=== PATIENT | male | born 1950 | race Caucasian/White ===

== ENCOUNTER 2020-12-05 06:39 | Inpatient (IN) ==
[2020-11-30 12:19] LABS: Hematocrit 45.7 VOL% (42.0-52.0); Mean Corpuscular Volume 86.9 FL (87-102); Red Blood Count 5.26 MC/CUMM (3.8-5.5); Red Cell Distribution Width 13.6 % (9.3-17.3); White Blood Count 7.2 T/CUMM (4-12)
[2020-11-30 12:20] LABS: Basophils # 0.1 10*3/uL (0.0-0.2); Basophils % 0.7 % (0.0-0.8); Eosinophils # 0.2 10*3/uL (0.0-0.87); Eosinophils % 3.3 % (0.00-10.9); Immature Granulocytes % 0.3 %; Immature Granulocytes Absolute 0.02 #; Lymphocytes # 1.4 10*3/uL (1.4-4.0); Lymphocytes % 19.7 % (21.2-54.2); Mean Platelet Volume 10.9 FL (9.6-12.0); Monocytes % 9.7 % (1.7-12.7); Neutrophils % 66.3 % (38.7-73.9); Platelet Count 170 T/CUMM (130-400)
[2020-11-30 12:55] LABS: Albumin 3.9 G/DL (3.4-5.0); Bilirubin,Total 0.4 MG/DL (0.20-1.00); Potassium 5.3 MMOL/L (3.5-5.1); Total Protein 6.9 G/DL (6.4-8.2)
[~2020-12-05 06:39] MED LIST: LACTATED RINGERS 1,000 ML IV SCH; VANCOMYCIN 1,000 MG VIAL ONE
[2020-12-05] MEDS ORDERED: VANCOMYCIN INJ 1,000 MG in SODIUM CHLORIDE 0.9% 250 ML IV ONE (07:00)
[2020-12-05] MEDS ORDERED: HEPARIN/NACL 0.9% 2 UNITS/ML 1,000 UNIT/500 ML BAG IV ONE (07:20)
[2020-12-05] MEDS ORDERED: LIDOCAINE 2% 5 ML VIAL ONE ×2 (07:20→07:42)
[2020-12-05] MEDS ORDERED: ETOMIDATE 40 MG/20 ML VIAL IV ONE (07:42)
[2020-12-05] MEDS ORDERED: propofoL 200 MG/20 ML VIAL IV ONE (07:42)
[2020-12-05] MEDS ORDERED: ROCURONIUM 50 MG/5 ML VIAL IV ONE (07:42)
[2020-12-05] MEDS ORDERED: ONDANSETRON 4 MG/2 ML VIAL ONE ×2 (07:42→11:55)
[2020-12-05] MEDS ORDERED: MIDAZOLAM 2 MG/2 ML VIAL ONE ×2 (07:43→08:06)
[2020-12-05] MEDS ORDERED: fentaNYL 100 MCG/2 ML VIAL ONE (07:43)
[2020-12-05] MEDS ORDERED: ALBUTEROL/IPRATROPIUM 3 ML NEB RESP TX ONE ×2 (08:04→17:42)
[2020-12-05] MEDS ORDERED: FAMOTIDINE 20 MG/2 ML VIAL IV ONE (08:06)
[2020-12-05] MEDS ORDERED: SODIUM CHLORIDE 0.9% 250 ML IV ONE (09:41)
[2020-12-05] MEDS ORDERED: PHENYLEPHRINE 10 MG/1 ML VIAL IV ONE (09:41)
[2020-12-05] MEDS ORDERED: ePHEDrine 50 MG/ML VIAL ONE ×3 (09:55→13:01)
[2020-12-05] MEDS ORDERED: GLYCOPYRROLATE 0.4 MG/2 ML VIAL ONE (09:57)
[2020-12-05 09:59] LABS: Bilirubin,Urine Negative (Negative); Blood, Urine Small mg/dL (Negative); Glucose,Urine (UA) Negative (Negative); Ketones,Urine Negative (Negative); Mucus,Urine Occasional /LPF (Occasional); Nitrite,Urine Negative (Negative); Protein,Urine Negative; RBC,Urine 1 /HPF (0-4); Urine Appearance CLEAR (Clear); Urine Color Yellow (Yellow); Urine Specific Gravity 1.019 (1.001-1.035); Urine Urobilinogen < 2.0 EU/DL (0.2-1.0)
[2020-12-05] MEDS ORDERED: SUGAMMADEX 200 MG/2 ML VIAL IV ONE (10:53)
[2020-12-05] MEDS: fentaNYL 2 MCG/ROPIV 0.2% EPID 100 ML EPIDURAL SCH ×2 (11:40→23:28)
[2020-12-05] MEDS ORDERED: HYDROmorphone 2 MG/1 ML VIAL ONE (11:55)
[2020-12-05] MEDS ORDERED: LIDOCAINE MPF 2% /EPI 20 ML VIAL ONE (12:40)
[2020-12-05] MEDS ORDERED: ACETAMINOPHEN INJ 1,000 MG/100 ML VIAL IV ONE (12:43)
[2020-12-05] MEDS ORDERED: ALBUMIN 5% 12.5 GM/250 ML VIAL IV ONE (13:01)
[2020-12-05] MEDS ORDERED: PHENYLEPHRINE DRIP 40 MG/250 ML PREMIX IV ONE (13:23)
[2020-12-05 14:07] LABS: Basophils % 0.2 % (0.0-0.8); Eosinophils # 0.1 10*3/uL (0.0-0.87); Eosinophils % 1.3 % (0.00-10.9); Hematocrit 36.3 VOL% (42.0-52.0); Hemoglobin 12.3 GM/DL (14.0-18.0); Immature Granulocytes % 0.3 %; Immature Granulocytes Absolute 0.03 #; Lymphocytes # 0.8 10*3/uL (1.4-4.0); Lymphocytes % 8.9 % (21.2-54.2); Mean Corpuscular HGB Conc 33.9 GM/DL (32-36); Mean Corpuscular Volume 88.1 FL (87-102); Mean Platelet Volume 9.6 FL (9.6-12.0); Monocytes % 5.6 % (1.7-12.7); Neutrophils % 83.7 % (38.7-73.9); Platelet Count 137 T/CUMM (130-400); Red Blood Count 4.12 MC/CUMM (3.8-5.5); Red Cell Distribution Width 13.8 % (9.3-17.3); White Blood Count 9.1 T/CUMM (4-12)
[2020-12-05 14:21] LABS: Calcium 7.5 MG/DL (8.5-10.1); Osmolality,Calculated 282.4 MOS/KG (273-304); Potassium 4.3 MMOL/L (3.5-5.1)
[2020-12-05] MEDS: PHENYLEPHRINE DRIP 40 MG/250 ML PREMIX IV PRN ×2 (14:25→22:24)
[2020-12-05] MEDS: POTASSIUM CHLORIDE INJ 10 MEQ in SODIUM CHLORIDE 0.45% 1,000 ML IV SCH ×2 (15:15→22:24)
[2020-12-05] MEDS: ALBUTEROL/IPRATROPIUM 3 ML NEB RESP TX SCH (17:48)
[2020-12-05] MEDS ORDERED: METOPROLOL SUCCINATE XL 25 MG TABLET PO SCH (21:00)
[2020-12-05] MEDS ORDERED: PRAVASTATIN 40 MG TABLET PO SCH (21:00)
[2020-12-05] MEDS: TAMSULOSIN 0.4 MG CAPSULE PO SCH (21:07)
[2020-12-05] MEDS: ASPIRIN CHEW 81 MG TABLET PO SCH (21:07)
[2020-12-05] MEDS: POLYCARBOPHIL 625 MG TABLET PO SCH (21:08)
[2020-12-05] MEDS: ROSUVASTATIN 20 MG TABLET PO SCH (21:08)
[2020-12-06] MEDS: ALBUTEROL/IPRATROPIUM 3 ML NEB RESP TX SCH ×4 (01:30→19:56)
[2020-12-06 03:39] LABS: Basophils % 0.3 % (0.0-0.8); Eosinophils # 0.1 10*3/uL (0.0-0.87); Eosinophils % 0.4 % (0.00-10.9); Hematocrit 40.2 VOL% (42.0-52.0); Hemoglobin 13.7 GM/DL (14.0-18.0); Immature Granulocytes % 0.4 %; Immature Granulocytes Absolute 0.05 #; Lymphocytes # 0.9 10*3/uL (1.4-4.0); Lymphocytes % 6.6 % (21.2-54.2); Mean Corpuscular HGB Conc 34.1 GM/DL (32-36); Mean Corpuscular Volume 88.2 FL (87-102); Mean Platelet Volume 10.3 FL (9.6-12.0); Monocytes % 7.8 % (1.7-12.7); Neutrophils % 84.5 % (38.7-73.9); Platelet Count 181 T/CUMM (130-400); Red Blood Count 4.56 MC/CUMM (3.8-5.5); Red Cell Distribution Width 14.1 % (9.3-17.3); White Blood Count 13.8 T/CUMM (4-12)
[2020-12-06 03:56] LABS: Calcium 7.3 MG/DL (8.5-10.1); Osmolality,Calculated 276.8 MOS/KG (273-304)
[2020-12-06] MEDS: POTASSIUM CHLORIDE INJ 10 MEQ in SODIUM CHLORIDE 0.45% 1,000 ML IV SCH (06:07)
[2020-12-06] MEDS: PHENYLEPHRINE DRIP 40 MG/250 ML PREMIX IV PRN ×3 (06:08→23:10)
[2020-12-06] MEDS: fentaNYL 2 MCG/ROPIV 0.2% EPID 100 ML EPIDURAL SCH ×3 (06:08→22:42)
[2020-12-06] MEDS ORDERED: LEVALBUTEROL 1.25 MG/3 ML NEB RESP TX PRN (06:47)
[2020-12-06] MEDS ORDERED: ALBUTEROL 2.5 MG/3 ML NEB RESP TX SCH (07:00)
[2020-12-06] MEDS: methylPREDNISolone SOD SUC 40 MG/1 ML VIAL IV SCH ×3 (07:11→23:10)
[2020-12-06] MEDS ORDERED: SODIUM CHLORIDE 0.9% 500 ML IV ONE (08:20)
[2020-12-06] MEDS: PANTOPRAZOLE 40 MG TABLET PO SCH (09:00)
[2020-12-06] MEDS: POTASSIUM CHLORIDE INJ 10 MEQ in LACTATED RINGERS 1,000 ML IV SCH ×2 (10:33→18:48)
[2020-12-06] MEDS: TRELEGY ELLIPTA INH SCH (15:31)
[2020-12-06] MEDS ORDERED: METOPROLOL TARTRATE 5 MG/5 ML VIAL IV PRN (18:15)
[2020-12-06] MEDS ORDERED: METOPROLOL TARTRATE 5 MG/5 ML VIAL IV ONE (18:16)
[2020-12-06] MEDS ORDERED: METOPROLOL SUCCINATE XL 25 MG TABLET PO ONE (18:39)
[2020-12-06] MEDS ORDERED: DIGOXIN 0.5 MG/2 ML AMP IV ONE ×3 (19:59→22:00)
[2020-12-06] MEDS: ASPIRIN CHEW 81 MG TABLET PO SCH (21:33)
[2020-12-06] MEDS: POLYCARBOPHIL 625 MG TABLET PO SCH (21:33)
[2020-12-06] MEDS: TAMSULOSIN 0.4 MG CAPSULE PO SCH (21:33)
[2020-12-06] MEDS: ROSUVASTATIN 20 MG TABLET PO SCH (21:33)
[2020-12-07] MEDS: METOPROLOL TARTRATE 5 MG/5 ML VIAL IV PRN (02:01)
[2020-12-07] MEDS: ALBUTEROL/IPRATROPIUM 3 ML NEB RESP TX SCH ×4 (02:30→19:42)
[2020-12-07] MEDS: POTASSIUM CHLORIDE INJ 10 MEQ in LACTATED RINGERS 1,000 ML IV SCH ×3 (03:29→19:15)
[2020-12-07] MEDS: methylPREDNISolone SOD SUC 40 MG/1 ML VIAL IV SCH ×3 (06:41→23:36)
[2020-12-07] MEDS: TRELEGY ELLIPTA INH SCH (08:15)
[2020-12-07] MEDS: PANTOPRAZOLE 40 MG TABLET PO SCH (08:15)
[2020-12-07] MEDS: DILTIAZEM INJ 100 MG in SODIUM CHLORIDE 0.9% 100 ML IV SCH (08:15)
[2020-12-07] MEDS: fentaNYL 2 MCG/ROPIV 0.2% EPID 100 ML EPIDURAL SCH ×2 (10:00→23:25)
[2020-12-07 11:21] LABS: Thyroid Stimulating Hormone 0.638 uIU/ml (0.358-3.74)
[2020-12-07] MEDS: ASPIRIN CHEW 81 MG TABLET PO SCH (20:28)
[2020-12-07] MEDS: METOPROLOL SUCCINATE XL 25 MG TABLET PO SCH (20:28)
[2020-12-07] MEDS: ROSUVASTATIN 20 MG TABLET PO SCH (20:29)
[2020-12-07] MEDS: TAMSULOSIN 0.4 MG CAPSULE PO SCH (20:29)
[2020-12-07] MEDS: POLYCARBOPHIL 625 MG TABLET PO SCH (20:29)
[2020-12-08] MEDS: ALBUTEROL/IPRATROPIUM 3 ML NEB RESP TX SCH ×4 (00:40→19:39)
[2020-12-08] MEDS: POTASSIUM CHLORIDE INJ 10 MEQ in LACTATED RINGERS 1,000 ML IV SCH ×2 (03:17→12:39)
[2020-12-08 03:58] LABS: Basophils % 0.1 % (0.0-0.8); Hematocrit 33.3 VOL% (42.0-52.0); Hemoglobin 11.7 GM/DL (14.0-18.0); Immature Granulocytes % 0.9 %; Immature Granulocytes Absolute 0.15 #; Lymphocytes # 0.4 10*3/uL (1.4-4.0); Lymphocytes % 2.5 % (21.2-54.2); Mean Corpuscular HGB Conc 35.1 GM/DL (32-36); Mean Corpuscular Volume 86.5 FL (87-102); Mean Platelet Volume 10.5 FL (9.6-12.0); Monocytes % 6.5 % (1.7-12.7); Platelet Count 160 T/CUMM (130-400); Red Blood Count 3.85 MC/CUMM (3.8-5.5); Red Cell Distribution Width 14.2 % (9.3-17.3); White Blood Count 17.6 T/CUMM (4-12)
[2020-12-08 04:30] LABS: Osmolality,Calculated 285.5 MOS/KG (273-304); Potassium 5.3 MMOL/L (3.5-5.1)
[2020-12-08] MEDS: DILTIAZEM INJ 100 MG in SODIUM CHLORIDE 0.9% 100 ML IV SCH ×2 (04:56→08:32)
[2020-12-08 05:19] LABS: Lymphocytes 5 % (20-55); Segmented Neutrophils 93 % (50-85); Total Cells Counted 100
[2020-12-08 05:20] LABS: Atypical Lymphocytes Few; Platelet Estimate Adequate
[2020-12-08] MEDS: methylPREDNISolone SOD SUC 40 MG/1 ML VIAL IV SCH ×3 (06:26→23:45)
[2020-12-08] MEDS ORDERED: MEPERIDINE 50 MG/1 ML VIAL IM ONE (06:45)
[2020-12-08] MEDS ORDERED: PROMETHAZINE 25 MG/1 ML VIAL IM ONE (06:45)
[2020-12-08] MEDS ORDERED: LIDOCAINE 1% 20 ML VIAL MISC INJ ONE (07:00)
[2020-12-08] MEDS ORDERED: LIDOCAINE 2% 20 ML VIAL RESP TX ONE (07:00)
[2020-12-08] MEDS ORDERED: LIDOCAINE 2% VISCOUS 100 ML BOTTLE SWISH/SPIT ONE (07:00)
[2020-12-08] MEDS: PANTOPRAZOLE 40 MG TABLET PO SCH (09:07)
[2020-12-08] MEDS: TRELEGY ELLIPTA INH SCH (09:07)
[2020-12-08] MEDS: fentaNYL 2 MCG/ROPIV 0.2% EPID 100 ML EPIDURAL SCH (10:32)
[2020-12-08] MEDS: DILTIAZEM CD 120 MG CAPSULE PO SCH (11:00)
[2020-12-08] MEDS ORDERED: ENOXAPARIN 100 MG/ML SYRINGE SUBCUT ONE (15:04)
[2020-12-08] MEDS: METOPROLOL TARTRATE 5 MG/5 ML VIAL IV SCH ×3 (18:37→19:39)
[2020-12-08] MEDS: TAMSULOSIN 0.4 MG CAPSULE PO SCH (20:43)
[2020-12-08] MEDS: ROSUVASTATIN 20 MG TABLET PO SCH (20:43)
[2020-12-08] MEDS: POLYCARBOPHIL 625 MG TABLET PO SCH (20:43)
[2020-12-08] MEDS: METOPROLOL SUCCINATE XL 25 MG TABLET PO SCH (20:43)
[2020-12-08] MEDS: ASPIRIN CHEW 81 MG TABLET PO SCH (20:43)
[2020-12-08] MEDS ORDERED: clonazePAM 0.5 MG TABLET PO ONE (20:50)
[2020-12-08] MEDS: METOPROLOL TARTRATE 5 MG/5 ML VIAL IV PRN (22:16)
[2020-12-09] MEDS: ALBUTEROL/IPRATROPIUM 3 ML NEB RESP TX SCH ×4 (00:04→18:28)
[2020-12-09 00:42] LABS: ABG Base Excess -2.7 MMOL/L (-2.5-2.5); ABG Oxygen Saturation 91.8 % (95-100); ABG PH 7.404 (7.35-7.45); ABG PO2 59.7 MM HG (80-95); ABG TCO2 18.8 MMOL/L (23-27); Allen Test Positive; Pt O2 Delivery Device CPAP
[2020-12-09] MEDS: LORazepam 2 MG/1 ML VIAL IV PRN ×4 (01:04→19:43)
[2020-12-09] MEDS: methylPREDNISolone SOD SUC 40 MG/1 ML VIAL IV SCH ×2 (06:31→18:00)
[2020-12-09 08:53] LABS: Basophils % 0.1 % (0.0-0.8); Hematocrit 38.4 VOL% (42.0-52.0); Hemoglobin 13.1 GM/DL (14.0-18.0); Immature Granulocytes % 0.7 %; Immature Granulocytes Absolute 0.11 #; Lymphocytes # 0.6 10*3/uL (1.4-4.0); Lymphocytes % 3.8 % (21.2-54.2); Mean Corpuscular HGB Conc 34.1 GM/DL (32-36); Mean Corpuscular Volume 88.3 FL (87-102); Mean Platelet Volume 10.5 FL (9.6-12.0); Monocytes % 7.1 % (1.7-12.7); Neutrophils % 88.3 % (38.7-73.9); Platelet Count 161 T/CUMM (130-400); Red Blood Count 4.35 MC/CUMM (3.8-5.5); White Blood Count 15.5 T/CUMM (4-12)
[2020-12-09 09:18] LABS: Band Neutrophils 3 % (0-10); Lymphocytes 5 % (20-55); Microcytosis 1+; Platelet Estimate Adequate; Segmented Neutrophils 83 % (50-85); Total Cells Counted 100
[2020-12-09] MEDS: PANTOPRAZOLE 40 MG TABLET PO SCH (09:20)
[2020-12-09] MEDS: TRELEGY ELLIPTA INH SCH (09:20)
[2020-12-09] MEDS: DILTIAZEM CD 120 MG CAPSULE PO SCH (09:20)
[2020-12-09 09:24] LABS: Albumin 2.7 G/DL (3.4-5.0); Bilirubin,Total 0.6 MG/DL (0.20-1.00); CKMB % 1.2 %; Calcium 8.5 MG/DL (8.5-10.1); High Sensitive Troponin I* 174.9 ng/L (0-78); Osmolality,Calculated 288.3 MOS/KG (273-304); Potassium 5.2 MMOL/L (3.5-5.1)
[2020-12-09] MEDS: METOPROLOL SUCCINATE XL 25 MG TABLET PO SCH ×2 (11:20→21:08)
[2020-12-09] MEDS: ENOXAPARIN 100 MG/ML SYRINGE SUBCUT SCH (11:20)
[2020-12-09] MEDS: ASPIRIN CHEW 81 MG TABLET PO SCH (21:08)
[2020-12-09] MEDS: POLYCARBOPHIL 625 MG TABLET PO SCH (21:08)
[2020-12-09] MEDS: TAMSULOSIN 0.4 MG CAPSULE PO SCH (21:08)
[2020-12-09] MEDS: ROSUVASTATIN 20 MG TABLET PO SCH (21:08)
[2020-12-09 21:54] LABS: ABG Base Excess -3.9 MMOL/L (-2.5-2.5); ABG Oxygen Saturation 90.5 % (95-100); ABG PCO2 40.1 MM HG (35-48); ABG PH 7.339 (7.35-7.45); ABG PO2 63.6 MM HG (80-95); ABG TCO2 18.9 MMOL/L (23-27)
[2020-12-09] MEDS ORDERED: ETOMIDATE 20 MG/10 ML VIAL IV ONE ×2 (22:13→23:17)
[2020-12-09] MEDS ORDERED: ROCURONIUM 100 MG/10 ML VIAL IV ONE ×2 (22:14→23:16)
[2020-12-09 23:33] LABS: ABG Base Excess -5.3 MMOL/L (-2.5-2.5); ABG HCO3 20.1 MMOL/L (20-26); ABG Oxygen Saturation 99.4 % (95-100); ABG TCO2 23.4 MMOL/L (23-27)
[2020-12-09 23:35] LABS: ABG PCO2 72.3 MM HG (35-48)
[2020-12-09 23:36] LABS: Amorphous Crystals,Urine Occasional /HPF (Few); Bilirubin,Urine Negative (Negative); Blood, Urine Large mg/dL (Negative); Glucose,Urine (UA) Negative (Negative); Ketones,Urine Negative (Negative); Nitrite,Urine Negative (Negative); Protein,Urine 30 MG/DL; RBC,Urine 179 /HPF (0-4); Urine Appearance CLOUDY (Clear); Urine Color Yellow (Yellow); Urine Specific Gravity 1.014 (1.001-1.035); Urine Urobilinogen < 2.0 EU/DL (0.2-1.0)
[2020-12-09] MEDS ORDERED: SODIUM BICARBONATE 50 MEQ/50 ML VIAL IV ONE (23:40)
[2020-12-09] MEDS: ALUMINUM/MAGNES/SIMETH MAX STR 30 ML UDCUP NG SCH (23:53)
[2020-12-10] MEDS: ALBUTEROL/IPRATROPIUM 3 ML NEB RESP TX SCH ×4 (00:20→21:40)
[2020-12-10 01:26] LABS: ABG Base Excess -3.7 MMOL/L (-2.5-2.5); ABG HCO3 21.3 MMOL/L (20-26); ABG Oxygen Saturation 95.9 % (95-100)
[2020-12-10 01:27] LABS: ABG PCO2 82.9 MM HG (35-48)
[2020-12-10 01:28] LABS: ABG PH 7.144 (7.35-7.45)
[2020-12-10] MEDS ORDERED: SODIUM BICARBONATE 50 MEQ/50 ML VIAL IV ONE ×2 (01:55→03:01)
[2020-12-10] MEDS: PHENYLEPHRINE DRIP 40 MG/250 ML PREMIX IV PRN ×2 (02:17→04:50)
[2020-12-10 02:34] LABS: ABG Base Excess 0.3 MMOL/L (-2.5-2.5); ABG HCO3 30.7 MMOL/L (20-26); ABG Oxygen Saturation 94.8 % (95-100); ABG PH 7.214 (7.35-7.45); ABG PO2 90.3 MM HG (80-95)
[2020-12-10 02:36] LABS: ABG PCO2 77.7 MM HG (35-48)
[2020-12-10] MEDS ORDERED: SODIUM CHLORIDE 0.9% 1,000 ML IV ONE (03:01)
[2020-12-10] MEDS: ALUMINUM/MAGNES/SIMETH MAX STR 30 ML UDCUP NG SCH ×6 (03:19→23:13)
[2020-12-10] MEDS: METOPROLOL TARTRATE 5 MG/5 ML VIAL IV PRN ×2 (03:44→03:50)
[2020-12-10] MEDS ORDERED: MIDAZOLAM 2 MG/2 ML VIAL IV ONE (03:57)
[2020-12-10] MEDS ORDERED: MIDAZOLAM 2 MG/2 ML VIAL ONE (03:59)
[2020-12-10 04:10] LABS: ABG Base Excess 0.3 MMOL/L (-2.5-2.5); ABG HCO3 29.7 MMOL/L (20-26); ABG Oxygen Saturation 97.7 % (95-100); ABG PH 7.235 (7.35-7.45); ABG TCO2 31.9 MMOL/L (23-27)
[2020-12-10 04:11] LABS: ABG PCO2 71.8 MM HG (35-48)
[2020-12-10] MEDS: MIDAZOLAM 100 MG in SODIUM CHLORIDE 0.9% 80 ML IV PRN ×2 (04:30→18:15)
[2020-12-10] MEDS ORDERED: DIGOXIN 0.5 MG/2 ML AMP IV ONE ×3 (04:31→07:30)
[2020-12-10] MEDS ORDERED: DIGOXIN 0.5 MG/2 ML AMP ONE (04:32)
[2020-12-10 04:33] LABS: Basophils % 0.2 % (0.0-0.8); Eosinophils # 0.1 10*3/uL (0.0-0.87); Eosinophils % 0.3 % (0.00-10.9); Hematocrit 40.4 VOL% (42.0-52.0); Hemoglobin 13.3 GM/DL (14.0-18.0); Immature Granulocytes Absolute 0.26 #; Lymphocytes # 0.5 10*3/uL (1.4-4.0); Lymphocytes % 2.1 % (21.2-54.2); Mean Corpuscular HGB Conc 32.9 GM/DL (32-36); Mean Corpuscular Volume 91.8 FL (87-102); Mean Platelet Volume 10.5 FL (9.6-12.0); Monocytes % 9.2 % (1.7-12.7); NRBC # 0.03 10*3/uL; Neutrophils % 87.2 % (38.7-73.9); Platelet Count 292 T/CUMM (130-400); Red Cell Distribution Width 15.6 % (9.3-17.3); White Blood Count 25.7 T/CUMM (4-12)
[2020-12-10 04:59] LABS: Band Neutrophils 2 % (0-10); Lymphocytes 3 % (20-55); Microcytosis 1+; Platelet Estimate Adequate; Segmented Neutrophils 89 % (50-85); Total Cells Counted 100
[2020-12-10 05:00] LABS: Albumin 2.3 G/DL (3.4-5.0); Bilirubin,Total 0.7 MG/DL (0.20-1.00); Calcium 7.6 MG/DL (8.5-10.1); Osmolality,Calculated 304.7 MOS/KG (273-304); Potassium 5.4 MMOL/L (3.5-5.1); Total Protein 4.8 G/DL (6.4-8.2)
[2020-12-10] MEDS ORDERED: DILTIAZEM 25 MG/5 ML VIAL IV ONE ×2 (05:10→05:13)
[2020-12-10] MEDS ORDERED: NOREPINEPHRINE 4 MG/4 ML VIAL IV ONE (05:26)
[2020-12-10] MEDS ORDERED: NOREPINEPHRINE 8 MG in SODIUM CHLORIDE 0.9% 242 ML IV PRN (05:28)
[2020-12-10] MEDS: MEROPENEM 500 MG in SODIUM CHLORIDE 0.9% 100 ML IV SCH ×3 (05:52→20:49)
[2020-12-10] MEDS: methylPREDNISolone SOD SUC 40 MG/1 ML VIAL IV SCH ×3 (05:52→23:13)
[2020-12-10] MEDS ORDERED: ROCURONIUM 100 MG/10 ML VIAL IV ONE (05:53)
[2020-12-10] MEDS: PHENYLEPHRINE INJ 160 MG in SODIUM CHLORIDE 0.9% 234 ML IV PRN ×3 (06:14→20:19)
[2020-12-10] MEDS ORDERED: NOREPINEPHRINE 16 MG in SODIUM CHLORIDE 0.9% 234 ML IV PRN (06:16)
[2020-12-10] MEDS ORDERED: AMIODARONE INJ 150 MG in DEXTROSE 5% 100 ML IV ONE (08:02)
[2020-12-10] MEDS ORDERED: SODIUM CHLORIDE 0.9% 500 ML IV ONE ×2 (08:22→08:26)
[2020-12-10] MEDS ORDERED: SODIUM CHLORIDE 0.9% 1,000 ML IV SCH (08:30)
[2020-12-10 08:50] LABS: ABG Base Excess -0.2 MMOL/L (-2.5-2.5); ABG HCO3 24.1 MMOL/L (20-26); ABG Oxygen Saturation 91.8 % (95-100); ABG PCO2 58.8 MM HG (35-48); ABG PH 7.289 (7.35-7.45); ABG PO2 68.3 MM HG (80-95); ABG TCO2 24.5 MMOL/L (23-27)
[2020-12-10] MEDS: METOPROLOL SUCCINATE XL 25 MG TABLET PO SCH (09:00)
[2020-12-10] MEDS: PANTOPRAZOLE 40 MG TABLET PO SCH (09:00)
[2020-12-10] MEDS: DILTIAZEM CD 120 MG CAPSULE PO SCH (09:00)
[2020-12-10] MEDS: TRELEGY ELLIPTA INH SCH (09:00)
[2020-12-10] MEDS: DEXTROSE 5% NACL 0.45% 1,000 ML IV SCH ×3 (09:10→22:07)
[2020-12-10] MEDS: AMIODARONE INJ 450 MG in DEXTROSE 5% 241 ML IV SCH (09:30)
[2020-12-10] MEDS: ENOXAPARIN 100 MG/ML SYRINGE SUBCUT SCH (10:20)
[2020-12-10] MEDS: LORazepam 2 MG/1 ML VIAL IV PRN (15:50)
[2020-12-10] MEDS: METOPROLOL TARTRATE 50 MG TABLET PO SCH (20:47)
[2020-12-10] MEDS: ROSUVASTATIN 20 MG TABLET PO SCH (20:47)
[2020-12-10] MEDS: ASPIRIN CHEW 81 MG TABLET PO SCH (20:47)
[2020-12-10] MEDS: POLYCARBOPHIL 625 MG TABLET PO SCH (20:47)
[2020-12-11] MEDS: ALBUTEROL/IPRATROPIUM 3 ML NEB RESP TX SCH ×4 (00:43→18:28)
[2020-12-11] MEDS: AMIODARONE INJ 450 MG in DEXTROSE 5% 241 ML IV SCH (01:24)
[2020-12-11] MEDS: ALUMINUM/MAGNES/SIMETH MAX STR 30 ML UDCUP NG SCH ×6 (03:25→23:40)
[2020-12-11 04:17] LABS: Basophils % 0.1 % (0.0-0.8); Hematocrit 37.4 VOL% (42.0-52.0); Hemoglobin 12.5 GM/DL (14.0-18.0); Immature Granulocytes % 0.8 %; Immature Granulocytes Absolute 0.17 #; Lymphocytes # 0.8 10*3/uL (1.4-4.0); Lymphocytes % 3.8 % (21.2-54.2); Mean Corpuscular HGB Conc 33.4 GM/DL (32-36); Mean Corpuscular Volume 90.3 FL (87-102); Mean Platelet Volume 10.3 FL (9.6-12.0); NRBC # 0.04 10*3/uL; Neutrophils % 87.3 % (38.7-73.9); Platelet Count 205 T/CUMM (130-400); Red Blood Count 4.14 MC/CUMM (3.8-5.5); Red Cell Distribution Width 15.8 % (9.3-17.3); White Blood Count 20.7 T/CUMM (4-12)
[2020-12-11 04:24] LABS: ABG Base Excess 3.6 MMOL/L (-2.5-2.5); ABG HCO3 27.6 MMOL/L (20-26); ABG Oxygen Saturation 98.8 % (95-100); ABG PCO2 48.7 MM HG (35-48); ABG TCO2 25.9 MMOL/L (23-27)
[2020-12-11 04:36] LABS: Albumin 1.8 G/DL (3.4-5.0); Bilirubin,Total 0.5 MG/DL (0.20-1.00); Calcium 7.7 MG/DL (8.5-10.1); Potassium 4.4 MMOL/L (3.5-5.1); Total Protein 4.9 G/DL (6.4-8.2)
[2020-12-11] MEDS: DEXTROSE 5% NACL 0.45% 1,000 ML IV SCH ×3 (04:36→18:08)
[2020-12-11 04:47] LABS: Osmolality,Calculated 297.8 MOS/KG (273-304)
[2020-12-11] MEDS: MEROPENEM 500 MG in SODIUM CHLORIDE 0.9% 100 ML IV SCH ×3 (06:09→20:45)
[2020-12-11] MEDS: MIDAZOLAM 100 MG in SODIUM CHLORIDE 0.9% 80 ML IV PRN (07:09)
[2020-12-11] MEDS: PHENYLEPHRINE INJ 160 MG in SODIUM CHLORIDE 0.9% 234 ML IV PRN (07:10)
[2020-12-11] MEDS: DILTIAZEM CD 120 MG CAPSULE PO SCH (09:35)
[2020-12-11] MEDS: TRELEGY ELLIPTA INH SCH (09:39)
[2020-12-11] MEDS: methylPREDNISolone SOD SUC 40 MG/1 ML VIAL IV SCH ×2 (09:42→20:40)
[2020-12-11] MEDS: PANTOPRAZOLE 40 MG VIAL IV SCH (10:17)
[2020-12-11] MEDS: ENOXAPARIN 100 MG/ML SYRINGE SUBCUT SCH (10:20)
[2020-12-11] MEDS: METOPROLOL TARTRATE 50 MG TABLET PO SCH ×2 (10:22→20:44)
[2020-12-11] MEDS: PANTOPRAZOLE 40 MG TABLET PO SCH (10:31)
[2020-12-11] MEDS ORDERED: GLUCAGON 1 MG VIAL IM PRN (11:01)
[2020-12-11] MEDS ORDERED: DEXTROSE 50% 25 GM/50 ML VIAL IV PRN (11:01)
[2020-12-11] MEDS: BUDESONIDE 0.5 MG/2 ML NEB RESP TX SCH (18:28)
[2020-12-11] MEDS: POLYCARBOPHIL 625 MG TABLET PO SCH (20:43)
[2020-12-11] MEDS: ASPIRIN CHEW 81 MG TABLET PO SCH (20:43)
[2020-12-11] MEDS: AMIODARONE 200 MG TABLET PO SCH (20:44)
[2020-12-11] MEDS: ROSUVASTATIN 20 MG TABLET PO SCH (20:44)
[2020-12-12] MEDS: ALBUTEROL/IPRATROPIUM 3 ML NEB RESP TX SCH ×4 (00:33→19:10)
[2020-12-12] MEDS: DEXTROSE 5% NACL 0.45% 1,000 ML IV SCH ×4 (00:50→18:35)
[2020-12-12] MEDS: MIDAZOLAM 100 MG in SODIUM CHLORIDE 0.9% 80 ML IV PRN ×2 (02:33→12:54)
[2020-12-12] MEDS: ALUMINUM/MAGNES/SIMETH MAX STR 30 ML UDCUP NG SCH ×6 (02:35→23:28)
[2020-12-12 03:38] LABS: ABG Base Excess 2.7 MMOL/L (-2.5-2.5); ABG HCO3 27.4 MMOL/L (20-26); ABG Oxygen Saturation 95.6 % (95-100); ABG PCO2 42.5 MM HG (35-48); ABG PH 7.427 (7.35-7.45); ABG PO2 83.5 MM HG (80-95); ABG TCO2 28.7 MMOL/L (23-27)
[2020-12-12 03:44] LABS: Basophils % 0.1 % (0.0-0.8); Hematocrit 33.1 VOL% (42.0-52.0); Immature Granulocytes % 1.9 %; Immature Granulocytes Absolute 0.32 #; Lymphocytes # 0.5 10*3/uL (1.4-4.0); Lymphocytes % 2.9 % (21.2-54.2); Mean Corpuscular HGB Conc 33.2 GM/DL (32-36); Mean Corpuscular Volume 90.2 FL (87-102); Mean Platelet Volume 10.6 FL (9.6-12.0); Monocytes % 6.1 % (1.7-12.7); NRBC # 0.02 10*3/uL; Platelet Count 165 T/CUMM (130-400); Red Blood Count 3.67 MC/CUMM (3.8-5.5); Red Cell Distribution Width 15.7 % (9.3-17.3); White Blood Count 16.9 T/CUMM (4-12)
[2020-12-12 04:02] LABS: Alanine Aminotransferase 104 U/L (16-61); Albumin 1.6 G/DL (3.4-5.0); Alkaline Phosphatase 52 U/L (45-117); Aspartate Amino Transferase 41 U/L (0-37); Bilirubin,Total < 0.39 MG/DL (0.20-1.00); Blood Urea Nitrogen 35 MG/DL (7-18); Calcium 7.4 MG/DL (8.5-10.1); Carbon Dioxide 32 MMOL/L (21-32); Estimated Glom Filtration Rate 70 ML/MIN; Glucose 161 MG/DL (74-106); Potassium 4.1 MMOL/L (3.5-5.1); Sodium 143 MMOL/L (136-145); Total Protein 4.5 G/DL (6.4-8.2)
[2020-12-12 04:03] LABS: Lymphocytes 1 % (20-55); Nucleated Red Blood Cells 1 (0-5); Platelet Estimate Normal; Segmented Neutrophils 93 % (50-85); Total Cells Counted 100
[2020-12-12] MEDS: MEROPENEM 500 MG in SODIUM CHLORIDE 0.9% 100 ML IV SCH ×3 (05:13→21:47)
[2020-12-12] MEDS: BUDESONIDE 0.5 MG/2 ML NEB RESP TX SCH ×2 (07:15→19:10)
[2020-12-12] MEDS: methylPREDNISolone SOD SUC 40 MG/1 ML VIAL IV SCH ×2 (08:12→21:48)
[2020-12-12] MEDS: PANTOPRAZOLE 40 MG VIAL IV SCH (08:12)
[2020-12-12] MEDS: AMIODARONE 200 MG TABLET PO SCH ×2 (08:22→21:47)
[2020-12-12] MEDS: TRELEGY ELLIPTA INH SCH (08:46)
[2020-12-12] MEDS: METOPROLOL TARTRATE 50 MG TABLET PO SCH (09:23)
[2020-12-12] MEDS ORDERED: ROCURONIUM 100 MG/10 ML VIAL IV ONE ×2 (09:40→09:41)
[2020-12-12] MEDS ORDERED: EPINEPHrine 1 MG/ML VIAL ONE (10:13)
[2020-12-12] MEDS: ENOXAPARIN 100 MG/ML SYRINGE SUBCUT SCH (11:14)
[2020-12-12] MEDS: MAGNESIUM HYDROXIDE SUSP 30 ML UDCUP PO PRN (11:14)
[2020-12-12] MEDS: VANCOMYCIN INJ 1,500 MG in SODIUM CHLORIDE 0.9% 500 ML IV SCH (12:15)
[2020-12-12] MEDS: ASPIRIN CHEW 81 MG TABLET PO SCH (21:46)
[2020-12-12] MEDS: ROSUVASTATIN 20 MG TABLET PO SCH (21:46)
[2020-12-12] MEDS: POLYCARBOPHIL 625 MG TABLET PO SCH (21:46)
[2020-12-13] MEDS: ALBUTEROL/IPRATROPIUM 3 ML NEB RESP TX SCH ×4 (00:07→19:35)
[2020-12-13] MEDS: MIDAZOLAM 100 MG in SODIUM CHLORIDE 0.9% 80 ML IV PRN ×2 (01:34→06:32)
[2020-12-13] MEDS: VANCOMYCIN INJ 1,500 MG in SODIUM CHLORIDE 0.9% 500 ML IV SCH ×2 (01:38→11:48)
[2020-12-13 04:29] LABS: ABG Base Excess 5.6 MMOL/L (-2.5-2.5); ABG HCO3 29.4 MMOL/L (20-26); ABG Oxygen Saturation 95.4 % (95-100); ABG PH 7.484 (7.35-7.45); ABG PO2 77.5 MM HG (80-95); ABG TCO2 30.6 MMOL/L (23-27)
[2020-12-13 04:33] LABS: Basophils % 0.1 % (0.0-0.8); Hematocrit 34.9 VOL% (42.0-52.0); Hemoglobin 11.6 GM/DL (14.0-18.0); Immature Granulocytes % 3.3 %; Immature Granulocytes Absolute 0.49 #; Lymphocytes # 0.4 10*3/uL (1.4-4.0); Lymphocytes % 2.9 % (21.2-54.2); Mean Corpuscular HGB Conc 33.2 GM/DL (32-36); Mean Corpuscular Volume 90.6 FL (87-102); Mean Platelet Volume 10.7 FL (9.6-12.0); Monocytes % 5.2 % (1.7-12.7); NRBC # 0.03 10*3/uL; Neutrophils % 88.5 % (38.7-73.9); Platelet Count 180 T/CUMM (130-400); Red Blood Count 3.85 MC/CUMM (3.8-5.5); Red Cell Distribution Width 15.9 % (9.3-17.3)
[2020-12-13] MEDS: DEXTROSE 5% NACL 0.45% 1,000 ML IV SCH ×3 (04:35→23:42)
[2020-12-13] MEDS: MEROPENEM 500 MG in SODIUM CHLORIDE 0.9% 100 ML IV SCH (05:00)
[2020-12-13 05:02] LABS: Albumin 1.7 G/DL (3.4-5.0); Bilirubin,Total 0.4 MG/DL (0.20-1.00); Osmolality,Calculated 299.6 MOS/KG (273-304); Potassium 4.8 MMOL/L (3.5-5.1); Total Protein 4.1 G/DL (6.4-8.2)
[2020-12-13 05:16] LABS: Band Neutrophils 4 % (0-10); Lymphocytes 2 % (20-55); Metamyelocytes 1 %; Segmented Neutrophils 87 % (50-85)
[2020-12-13 05:17] LABS: Hypochromasia Slight; Platelet Estimate Normal; Total Cells Counted 100
[2020-12-13] MEDS: METOPROLOL TARTRATE 50 MG TABLET PO SCH ×3 (05:41→23:52)
[2020-12-13] MEDS: ALUMINUM/MAGNES/SIMETH MAX STR 30 ML UDCUP NG SCH ×2 (05:41→08:08)
[2020-12-13] MEDS: BUDESONIDE 0.5 MG/2 ML NEB RESP TX SCH ×2 (07:10→19:35)
[2020-12-13] MEDS: PANTOPRAZOLE 40 MG VIAL IV SCH (08:07)
[2020-12-13] MEDS: AMIODARONE 200 MG TABLET PO SCH ×2 (08:08→23:52)
[2020-12-13] MEDS: methylPREDNISolone SOD SUC 40 MG/1 ML VIAL IV SCH ×2 (08:08→23:33)
[2020-12-13] MEDS: TRELEGY ELLIPTA INH SCH (09:25)
[2020-12-13] MEDS: DEXMEDETOMIDINE 200 MCG in SODIUM CHLORIDE 0.9% 48 ML IV PRN ×5 (10:35→22:57)
[2020-12-13] MEDS: ENOXAPARIN 100 MG/ML SYRINGE SUBCUT SCH (10:37)
[2020-12-13] MEDS: PHENYLEPHRINE INJ 160 MG in SODIUM CHLORIDE 0.9% 234 ML IV PRN (21:05)
[2020-12-13] MEDS: POLYCARBOPHIL 625 MG TABLET PO SCH (23:51)
[2020-12-13] MEDS: ASPIRIN CHEW 81 MG TABLET PO SCH (23:51)
[2020-12-13] MEDS: ROSUVASTATIN 20 MG TABLET PO SCH (23:51)
[2020-12-13] MEDS: buPROPion 75 MG TABLET PO SCH (23:51)
[2020-12-14] MEDS: ALBUTEROL/IPRATROPIUM 3 ML NEB RESP TX SCH ×4 (00:19→18:03)
[2020-12-14] MEDS: VANCOMYCIN INJ 1,500 MG in SODIUM CHLORIDE 0.9% 500 ML IV SCH (00:56)
[2020-12-14] MEDS: MIDAZOLAM 100 MG in SODIUM CHLORIDE 0.9% 80 ML IV PRN (04:21)
[2020-12-14 04:29] LABS: ABG Base Excess 4.4 MMOL/L (-2.5-2.5); ABG HCO3 28.3 MMOL/L (20-26); ABG Oxygen Saturation 95.8 % (95-100); ABG PCO2 38.7 MM HG (35-48); ABG PO2 75.9 MM HG (80-95); ABG TCO2 24.6 MMOL/L (23-27); Allen Test Positive; Pt O2 Delivery Device Ventilator
[2020-12-14 04:49] LABS: Basophils % 0.2 % (0.0-0.8); Eosinophils % 0.2 % (0.00-10.9); Hematocrit 37.7 VOL% (42.0-52.0); Hemoglobin 12.3 GM/DL (14.0-18.0); Immature Granulocytes % 4.7 %; Immature Granulocytes Absolute 0.85 #; Lymphocytes # 0.6 10*3/uL (1.4-4.0); Lymphocytes % 3.2 % (21.2-54.2); Mean Corpuscular HGB Conc 32.6 GM/DL (32-36); Mean Corpuscular Volume 91.3 FL (87-102); Mean Platelet Volume 10.6 FL (9.6-12.0); NRBC # 0.03 10*3/uL; Neutrophils % 86.7 % (38.7-73.9); Platelet Count 197 T/CUMM (130-400); Red Blood Count 4.13 MC/CUMM (3.8-5.5); Red Cell Distribution Width 15.6 % (9.3-17.3)
[2020-12-14 05:06] LABS: Calcium 7.6 MG/DL (8.5-10.1)
[2020-12-14 05:09] LABS: Band Neutrophils 2 % (0-10); Lymphocytes 3 % (20-55); Platelet Estimate Normal; Segmented Neutrophils 92 % (50-85); Total Cells Counted 100
[2020-12-14] MEDS: BUDESONIDE 0.5 MG/2 ML NEB RESP TX SCH ×2 (06:57→18:03)
[2020-12-14] MEDS: TRELEGY ELLIPTA INH SCH (08:06)
[2020-12-14] MEDS: AMIODARONE 200 MG TABLET PO SCH ×2 (09:02→20:28)
[2020-12-14] MEDS: METOPROLOL TARTRATE 50 MG TABLET PO SCH ×2 (09:10→20:28)
[2020-12-14] MEDS: buPROPion 75 MG TABLET PO SCH ×2 (09:10→20:28)
[2020-12-14] MEDS: ceFAZolin 2,000 MG/50 ML DUPLEX IV SCH ×2 (09:10→17:49)
[2020-12-14] MEDS: methylPREDNISolone SOD SUC 40 MG/1 ML VIAL IV SCH ×2 (09:13→20:33)
[2020-12-14] MEDS: PANTOPRAZOLE 40 MG VIAL IV SCH (09:50)
[2020-12-14] MEDS: DEXMEDETOMIDINE 200 MCG in SODIUM CHLORIDE 0.9% 48 ML IV PRN (11:15)
[2020-12-14] MEDS: ENOXAPARIN 100 MG/ML SYRINGE SUBCUT SCH (11:40)
[2020-12-14] MEDS: DEXMEDETOMIDINE 400 MCG in SODIUM CHLORIDE 0.9% 96 ML IV PRN (17:46)
[2020-12-14] MEDS: DEXTROSE 5% NACL 0.45% 1,000 ML IV SCH ×2 (18:34→20:30)
[2020-12-14] MEDS: POLYCARBOPHIL 625 MG TABLET PO SCH (20:27)
[2020-12-14] MEDS: ASPIRIN CHEW 81 MG TABLET PO SCH (20:27)
[2020-12-14] MEDS: ROSUVASTATIN 20 MG TABLET PO SCH (20:28)
[2020-12-15] MEDS: ceFAZolin 2,000 MG/50 ML DUPLEX IV SCH ×3 (00:31→18:36)
[2020-12-15] MEDS: ALBUTEROL/IPRATROPIUM 3 ML NEB RESP TX SCH ×4 (01:13→18:10)
[2020-12-15] MEDS: DEXMEDETOMIDINE 400 MCG in SODIUM CHLORIDE 0.9% 96 ML IV PRN ×3 (01:50→21:10)
[2020-12-15 05:01] LABS: Basophils # 0.1 10*3/uL (0.0-0.2); Basophils % 0.3 % (0.0-0.8); Hematocrit 36.8 VOL% (42.0-52.0); Hemoglobin 12.6 GM/DL (14.0-18.0); Immature Granulocytes % 3.1 %; Immature Granulocytes Absolute 0.59 #; Lymphocytes # 0.5 10*3/uL (1.4-4.0); Lymphocytes % 2.6 % (21.2-54.2); Mean Corpuscular HGB Conc 34.2 GM/DL (32-36); Mean Corpuscular Volume 90.2 FL (87-102); Mean Platelet Volume 11.2 FL (9.6-12.0); NRBC # 0.02 10*3/uL; Platelet Count 168 T/CUMM (130-400); Red Blood Count 4.08 MC/CUMM (3.8-5.5); Red Cell Distribution Width 15.2 % (9.3-17.3); White Blood Count 19.1 T/CUMM (4-12)
[2020-12-15 05:19] LABS: ABG Base Excess 5.1 MMOL/L (-2.5-2.5); ABG Oxygen Saturation 94.9 % (95-100); ABG PCO2 35.4 MM HG (35-48); ABG PH 7.508 (7.35-7.45); ABG PO2 70.1 MM HG (80-95); ABG TCO2 24.5 MMOL/L (23-27); Allen Test Positive; Pt O2 Delivery Device Ventilator
[2020-12-15 05:26] LABS: Calcium 7.6 MG/DL (8.5-10.1); Osmolality,Calculated 293.4 MOS/KG (273-304); Potassium 5.1 MMOL/L (3.5-5.1)
[2020-12-15] MEDS: BUDESONIDE 0.5 MG/2 ML NEB RESP TX SCH ×2 (07:02→18:10)
[2020-12-15 07:29] LABS: Band Neutrophils 4 % (0-10); Hypochromasia Slight; Lymphocytes 2 % (20-55); Microcytosis 1+; Polychromasia Slight; Segmented Neutrophils 93 % (50-85); Total Cells Counted 100
[2020-12-15 07:30] LABS: Platelet Estimate Adequate
[2020-12-15] MEDS ORDERED: ALBUTEROL/IPRATROPIUM 3 ML NEB RESP TX ONE (08:11)
[2020-12-15] MEDS: METOPROLOL TARTRATE 50 MG TABLET PO SCH ×2 (09:19→21:04)
[2020-12-15] MEDS: buPROPion 75 MG TABLET PO SCH ×2 (09:19→21:04)
[2020-12-15] MEDS: PANTOPRAZOLE 40 MG VIAL IV SCH (09:22)
[2020-12-15] MEDS: methylPREDNISolone SOD SUC 40 MG/1 ML VIAL IV SCH (09:26)
[2020-12-15] MEDS: AMIODARONE 200 MG TABLET PO SCH ×2 (10:13→21:05)
[2020-12-15] MEDS: TRELEGY ELLIPTA INH SCH (10:15)
[2020-12-15] MEDS: ENOXAPARIN 100 MG/ML SYRINGE SUBCUT SCH (10:58)
[2020-12-15] MEDS: MICAFUNGIN 100 MG in SODIUM CHLORIDE 0.9% 100 ML IV SCH (10:58)
[2020-12-15] MEDS: LORazepam 2 MG/1 ML VIAL IV PRN (15:24)
[2020-12-15] MEDS ORDERED: MICAFUNGIN 100 MG in SODIUM CHLORIDE 0.9% 100 ML IV ONE (16:02)
[2020-12-15] MEDS: ARFORMOTEROL 15 MCG/2 ML NEB RESP TX SCH (18:10)
[2020-12-15] MEDS: DEXTROSE 5% NACL 0.45% 1,000 ML IV SCH (18:34)
[2020-12-15] MEDS: ASPIRIN CHEW 81 MG TABLET PO SCH (21:04)
[2020-12-15] MEDS: ROSUVASTATIN 20 MG TABLET PO SCH (21:05)
[2020-12-15] MEDS: POLYCARBOPHIL 625 MG TABLET PO SCH (21:10)
[2020-12-15] MEDS ORDERED: ONDANSETRON 4 MG/2 ML VIAL ONE (23:39)
[2020-12-15] MEDS ORDERED: ONDANSETRON 4 MG/2 ML VIAL IV PRN (23:43)
[2020-12-16] MEDS ORDERED: LORazepam 2 MG/1 ML VIAL ONE (00:01)
[2020-12-16] MEDS: LORazepam 2 MG/1 ML VIAL IV PRN (00:25)
[2020-12-16] MEDS: ceFAZolin 2,000 MG/50 ML DUPLEX IV SCH ×3 (01:19→18:20)
[2020-12-16 04:08] LABS: ABG Base Excess 4.4 MMOL/L (-2.5-2.5); ABG HCO3 28.3 MMOL/L (20-26); ABG Oxygen Saturation 94.5 % (95-100); ABG PCO2 41.6 MM HG (35-48); ABG PH 7.449 (7.35-7.45)
[2020-12-16 05:19] LABS: Basophils # 0.1 10*3/uL (0.0-0.2); Basophils % 0.2 % (0.0-0.8); Eosinophils # 0.1 10*3/uL (0.0-0.87); Eosinophils % 0.3 % (0.00-10.9); Hematocrit 40.4 VOL% (42.0-52.0); Hemoglobin 13.1 GM/DL (14.0-18.0); Immature Granulocytes Absolute 0.85 #; Lymphocytes % 3.4 % (21.2-54.2); Mean Corpuscular HGB Conc 32.4 GM/DL (32-36); Mean Corpuscular Volume 92.4 FL (87-102); Mean Platelet Volume 11.3 FL (9.6-12.0); Monocytes % 5.7 % (1.7-12.7); NRBC # 0.02 10*3/uL; Neutrophils % 87.4 % (38.7-73.9); Platelet Count 181 T/CUMM (130-400); Red Blood Count 4.37 MC/CUMM (3.8-5.5); Red Cell Distribution Width 15.3 % (9.3-17.3); White Blood Count 28.7 T/CUMM (4-12)
[2020-12-16 06:00] LABS: Calcium 7.8 MG/DL (8.5-10.1); Osmolality,Calculated 289.4 MOS/KG (273-304)
[2020-12-16] MEDS: BUDESONIDE 0.5 MG/2 ML NEB RESP TX SCH ×2 (06:52→19:36)
[2020-12-16] MEDS: ARFORMOTEROL 15 MCG/2 ML NEB RESP TX SCH ×2 (06:52→19:36)
[2020-12-16] MEDS: ALBUTEROL/IPRATROPIUM 3 ML NEB RESP TX SCH ×4 (06:52→19:36)
[2020-12-16 07:57] LABS: Lymphocytes 2 % (20-55); Segmented Neutrophils 92 % (50-85); Total Cells Counted 100
[2020-12-16 07:58] LABS: Platelet Estimate Adequate; Polychromasia Slight
[2020-12-16] MEDS: METOPROLOL TARTRATE 50 MG TABLET PO SCH (08:54)
[2020-12-16] MEDS: METOCLOPRAMIDE 10 MG/2 ML VIAL IV SCH ×2 (08:54→18:20)
[2020-12-16] MEDS: PANTOPRAZOLE 40 MG VIAL IV SCH (08:54)
[2020-12-16] MEDS: AMIODARONE 200 MG TABLET PO SCH ×2 (08:57→21:47)
[2020-12-16] MEDS: TRELEGY ELLIPTA INH SCH (08:57)
[2020-12-16] MEDS: buPROPion 75 MG TABLET PO SCH ×2 (08:57→21:47)
[2020-12-16] MEDS: predniSONE 20 MG TABLET PO SCH (08:57)
[2020-12-16] MEDS: DEXTROSE 5% NACL 0.45% 1,000 ML IV SCH ×2 (09:22→13:17)
[2020-12-16] MEDS: ENOXAPARIN 100 MG/ML SYRINGE SUBCUT SCH (10:57)
[2020-12-16] MEDS ORDERED: NOREPINEPHRINE 8 MG in SODIUM CHLORIDE 0.9% 242 ML IV PRN (11:00)
[2020-12-16] MEDS ORDERED: NOREPINEPHRINE 4 MG/4 ML VIAL IV ONE (11:38)
[2020-12-16] MEDS: MICAFUNGIN 100 MG in SODIUM CHLORIDE 0.9% 100 ML IV SCH (13:08)
[2020-12-16] MEDS ORDERED: MIDAZOLAM 2 MG/2 ML VIAL IV ONE ×3 (14:09→14:29)
[2020-12-16] MEDS: METOPROLOL TARTRATE 25 MG TABLET PO SCH ×2 (15:14→21:47)
[2020-12-16] MEDS ORDERED: MICAFUNGIN 100 MG in SODIUM CHLORIDE 0.9% 100 ML IV ONE (16:02)
[2020-12-16] MEDS: MIDAZOLAM 100 MG in SODIUM CHLORIDE 0.9% 80 ML IV PRN (21:30)
[2020-12-16] MEDS: ASPIRIN CHEW 81 MG TABLET PO SCH (21:47)
[2020-12-16] MEDS: POLYCARBOPHIL 625 MG TABLET PO SCH (21:47)
[2020-12-16] MEDS: ROSUVASTATIN 20 MG TABLET PO SCH (21:47)
[2020-12-17] MEDS: ceFAZolin 2,000 MG/50 ML DUPLEX IV SCH ×3 (01:22→21:45)
[2020-12-17] MEDS: METOCLOPRAMIDE 10 MG/2 ML VIAL IV SCH ×3 (01:22→17:18)
[2020-12-17] MEDS: ALBUTEROL/IPRATROPIUM 3 ML NEB RESP TX SCH ×4 (01:50→19:32)
[2020-12-17 05:47] LABS: ABG Base Excess 4.1 MMOL/L (-2.5-2.5); ABG HCO3 30.5 MMOL/L (20-26); ABG Oxygen Saturation 90.1 % (95-100); ABG PH 7.378 (7.35-7.45); ABG PO2 63.5 MM HG (80-95); ABG TCO2 32.1 MMOL/L (23-27)
[2020-12-17 05:51] LABS: Basophils # 0.1 10*3/uL (0.0-0.2); Basophils % 0.3 % (0.0-0.8); Eosinophils # 0.3 10*3/uL (0.0-0.87); Hematocrit 37.7 VOL% (42.0-52.0); Hemoglobin 12.6 GM/DL (14.0-18.0); Immature Granulocytes % 3.1 %; Immature Granulocytes Absolute 0.89 #; Lymphocytes # 0.9 10*3/uL (1.4-4.0); Mean Corpuscular HGB Conc 33.4 GM/DL (32-36); Mean Corpuscular Volume 92.2 FL (87-102); Mean Platelet Volume 12.1 FL (9.6-12.0); Monocytes % 5.3 % (1.7-12.7); Neutrophils % 87.3 % (38.7-73.9); Platelet Count 189 T/CUMM (130-400); Red Blood Count 4.09 MC/CUMM (3.8-5.5); Red Cell Distribution Width 15.2 % (9.3-17.3); White Blood Count 28.7 T/CUMM (4-12)
[2020-12-17 06:03] LABS: Calcium 7.5 MG/DL (8.5-10.1); Osmolality,Calculated 287.7 MOS/KG (273-304); Potassium 4.8 MMOL/L (3.5-5.1)
[2020-12-17 06:55] LABS: Eosinophils 2 % (0-10); Lymphocytes 4 % (20-55); Platelet Estimate Decreased; Polychromasia 1+; Promyelocytes 2 %; Segmented Neutrophils 91 % (50-85); Total Cells Counted 100
[2020-12-17] MEDS: BUDESONIDE 0.5 MG/2 ML NEB RESP TX SCH ×2 (07:17→19:32)
[2020-12-17] MEDS: ARFORMOTEROL 15 MCG/2 ML NEB RESP TX SCH ×2 (07:17→19:32)
[2020-12-17] MEDS ORDERED: EPINEPHrine 1 MG/ML VIAL ET ONE (10:18)
[2020-12-17] MEDS: DEXTROSE 5% NACL 0.45% 1,000 ML IV SCH (11:16)
[2020-12-17] MEDS: PANTOPRAZOLE 40 MG VIAL IV SCH (11:21)
[2020-12-17] MEDS: FLUCONAZOLE INJ 200 MG/100 ML PREMIX IV SCH (11:23)
[2020-12-17] MEDS: MIDAZOLAM 100 MG in SODIUM CHLORIDE 0.9% 80 ML IV PRN (11:25)
[2020-12-17] MEDS: METOPROLOL TARTRATE 5 MG/5 ML VIAL IV PRN (11:49)
[2020-12-17] MEDS: AMIODARONE 200 MG TABLET PO SCH ×2 (12:12→21:41)
[2020-12-17] MEDS ORDERED: ROCURONIUM 100 MG/10 ML VIAL IV ONE ×2 (13:54→13:55)
[2020-12-17] MEDS: ENOXAPARIN 100 MG/ML SYRINGE SUBCUT SCH (14:21)
[2020-12-17] MEDS: TRELEGY ELLIPTA INH SCH (14:21)
[2020-12-17] MEDS: buPROPion 75 MG TABLET PO SCH ×2 (14:21→21:42)
[2020-12-17] MEDS: QUEtiapine 25 MG TABLET PO SCH ×2 (14:21→21:42)
[2020-12-17] MEDS: predniSONE 20 MG TABLET PO SCH (14:24)
[2020-12-17] MEDS: methylPREDNISolone SOD SUC 40 MG/1 ML VIAL IV SCH ×2 (15:20→21:43)
[2020-12-17] MEDS: ROSUVASTATIN 20 MG TABLET PO SCH (21:41)
[2020-12-17] MEDS: POLYCARBOPHIL 625 MG TABLET PO SCH (21:41)
[2020-12-17] MEDS: ASPIRIN CHEW 81 MG TABLET PO SCH (21:42)
[2020-12-18] MEDS: MIDAZOLAM 100 MG in SODIUM CHLORIDE 0.9% 80 ML IV PRN ×2 (00:10→16:48)
[2020-12-18] MEDS: ENOXAPARIN 100 MG/ML SYRINGE SUBCUT SCH ×2 (00:18→22:35)
[2020-12-18] MEDS: METOCLOPRAMIDE 10 MG/2 ML VIAL IV SCH ×3 (00:19→16:20)
[2020-12-18] MEDS: ALBUTEROL/IPRATROPIUM 3 ML NEB RESP TX SCH ×4 (01:06→19:22)
[2020-12-18] MEDS: methylPREDNISolone SOD SUC 40 MG/1 ML VIAL IV SCH ×4 (03:21→20:32)
[2020-12-18] MEDS: ceFAZolin 2,000 MG/50 ML DUPLEX IV SCH ×3 (04:14→20:32)
[2020-12-18] MEDS: DEXTROSE 5% NACL 0.45% 1,000 ML IV SCH (04:14)
[2020-12-18 04:19] LABS: Basophils % 0.2 % (0.0-0.8); Hematocrit 36.4 VOL% (42.0-52.0); Immature Granulocytes % 2.5 %; Immature Granulocytes Absolute 0.56 #; Lymphocytes # 0.2 10*3/uL (1.4-4.0); Lymphocytes % 0.9 % (21.2-54.2); Mean Corpuscular Volume 92.6 FL (87-102); Mean Platelet Volume 11.5 FL (9.6-12.0); Monocytes % 1.1 % (1.7-12.7); Neutrophils % 95.3 % (38.7-73.9); Platelet Count 187 T/CUMM (130-400); Red Blood Count 3.93 MC/CUMM (3.8-5.5); Red Cell Distribution Width 14.6 % (9.3-17.3); White Blood Count 22.5 T/CUMM (4-12)
[2020-12-18 04:46] LABS: Albumin 1.7 G/DL (3.4-5.0); Bilirubin,Total 0.6 MG/DL (0.20-1.00); Calcium 7.6 MG/DL (8.5-10.1); Osmolality,Calculated 285.8 MOS/KG (273-304); Potassium 5.3 MMOL/L (3.5-5.1); Total Protein 4.7 G/DL (6.4-8.2)
[2020-12-18 04:55] LABS: ABG Base Excess 3.7 MMOL/L (-2.5-2.5); ABG HCO3 27.7 MMOL/L (20-26); ABG Oxygen Saturation 96.5 % (95-100); ABG PCO2 48.2 MM HG (35-48); ABG PH 7.394 (7.35-7.45); Allen Test Positive; Pt O2 Delivery Device Ventilator
[2020-12-18 04:56] LABS: Lymphocytes 2 % (20-55); Platelet Estimate Normal; Segmented Neutrophils 97 % (50-85); Total Cells Counted 100
[2020-12-18 04:57] LABS: Microcytosis Slight; Polychromasia Slight
[2020-12-18] MEDS: ARFORMOTEROL 15 MCG/2 ML NEB RESP TX SCH ×2 (07:22→19:22)
[2020-12-18] MEDS: BUDESONIDE 0.5 MG/2 ML NEB RESP TX SCH ×2 (07:22→19:22)
[2020-12-18] MEDS: METOPROLOL TARTRATE 5 MG/5 ML VIAL IV PRN ×2 (09:00→18:16)
[2020-12-18] MEDS: AMIODARONE 200 MG TABLET PO SCH ×2 (09:03→20:33)
[2020-12-18] MEDS: PANTOPRAZOLE 40 MG VIAL IV SCH (09:04)
[2020-12-18] MEDS: QUEtiapine 25 MG TABLET PO SCH ×2 (09:04→20:33)
[2020-12-18] MEDS: TRELEGY ELLIPTA INH SCH (09:04)
[2020-12-18] MEDS: buPROPion 75 MG TABLET PO SCH ×2 (09:04→20:33)
[2020-12-18] MEDS: ALBUMIN 25% 12.5 GM/50 ML VIAL IV SCH ×2 (10:45→17:59)
[2020-12-18] MEDS: FLUCONAZOLE INJ 200 MG/100 ML PREMIX IV SCH (11:00)
[2020-12-18] MEDS: POLYETHYLENE GLYCOL POWDER 17 GM PACK PO SCH (11:12)
[2020-12-18] MEDS: FUROSEMIDE 40 MG/4 ML VIAL IV SCH (16:19)
[2020-12-18] MEDS: POLYCARBOPHIL 625 MG TABLET PO SCH (20:33)
[2020-12-18] MEDS: ROSUVASTATIN 20 MG TABLET PO SCH (20:33)
[2020-12-18] MEDS: ASPIRIN CHEW 81 MG TABLET PO SCH (20:36)
[2020-12-19] MEDS: ALBUTEROL/IPRATROPIUM 3 ML NEB RESP TX SCH ×4 (00:50→18:04)
[2020-12-19] MEDS: METOCLOPRAMIDE 10 MG/2 ML VIAL IV SCH ×3 (01:14→17:20)
[2020-12-19] MEDS: ALBUMIN 25% 12.5 GM/50 ML VIAL IV SCH ×3 (01:14→17:20)
[2020-12-19] MEDS: methylPREDNISolone SOD SUC 40 MG/1 ML VIAL IV SCH ×4 (01:44→20:07)
[2020-12-19] MEDS ORDERED: ceFAZolin 2,000 MG/50 ML DUPLEX IV SCH (03:00)
[2020-12-19 04:52] LABS: Allen Test Positive; Pt O2 Delivery Device Ventilator
[2020-12-19 04:53] LABS: ABG Base Excess 6.5 MMOL/L (-2.5-2.5); ABG HCO3 31.3 MMOL/L (20-26); ABG Oxygen Saturation 95.2 % (95-100); ABG PCO2 46.2 MM HG (35-48); ABG PH 7.449 (7.35-7.45); ABG TCO2 32.7 MMOL/L (23-27)
[2020-12-19 05:08] LABS: Basophils % 0.1 % (0.0-0.8); Hematocrit 31.4 VOL% (42.0-52.0); Hemoglobin 10.3 GM/DL (14.0-18.0); Immature Granulocytes % 1.6 %; Immature Granulocytes Absolute 0.21 #; Lymphocytes # 0.1 10*3/uL (1.4-4.0); Lymphocytes % 1.1 % (21.2-54.2); Mean Corpuscular HGB Conc 32.8 GM/DL (32-36); Mean Corpuscular Volume 93.2 FL (87-102); Mean Platelet Volume 11.5 FL (9.6-12.0); Neutrophils % 94.2 % (38.7-73.9); Platelet Count 175 T/CUMM (130-400); Red Blood Count 3.37 MC/CUMM (3.8-5.5); Red Cell Distribution Width 14.7 % (9.3-17.3); White Blood Count 12.8 T/CUMM (4-12)
[2020-12-19 05:20] LABS: Osmolality,Calculated 291.4 MOS/KG (273-304); Potassium 4.4 MMOL/L (3.5-5.1)
[2020-12-19 05:51] LABS: Band Neutrophils 8 % (0-10); Lymphocytes 3 % (20-55); Platelet Estimate Normal; Segmented Neutrophils 86 % (50-85); Total Cells Counted 100
[2020-12-19 05:52] LABS: Anisocytosis 2+; Macrocytosis 1+
[2020-12-19] MEDS: ARFORMOTEROL 15 MCG/2 ML NEB RESP TX SCH ×2 (06:55→18:04)
[2020-12-19] MEDS: BUDESONIDE 0.5 MG/2 ML NEB RESP TX SCH ×2 (06:55→18:04)
[2020-12-19] MEDS: MIDAZOLAM 100 MG in SODIUM CHLORIDE 0.9% 80 ML IV PRN (07:30)
[2020-12-19] MEDS: FUROSEMIDE 40 MG/4 ML VIAL IV SCH (08:00)
[2020-12-19] MEDS: PANTOPRAZOLE 40 MG VIAL IV SCH (08:45)
[2020-12-19] MEDS: QUEtiapine 25 MG TABLET PO SCH ×2 (08:45→20:08)
[2020-12-19] MEDS: POLYETHYLENE GLYCOL POWDER 17 GM PACK PO SCH (08:45)
[2020-12-19] MEDS: buPROPion 75 MG TABLET PO SCH ×2 (08:45→20:08)
[2020-12-19] MEDS: AMIODARONE 200 MG TABLET PO SCH ×2 (08:45→20:08)
[2020-12-19] MEDS: TRELEGY ELLIPTA INH SCH (09:00)
[2020-12-19] MEDS: FLUCONAZOLE INJ 200 MG/100 ML PREMIX IV SCH (10:25)
[2020-12-19] MEDS: ASCORBIC ACID 500 MG TABLET NG SCH ×2 (10:30→20:08)
[2020-12-19] MEDS: HYDROmorphone 2 MG/1 ML VIAL IV PRN (11:35)
[2020-12-19] MEDS: METOPROLOL TARTRATE 5 MG/5 ML VIAL IV PRN (18:59)
[2020-12-19] MEDS: POLYCARBOPHIL 625 MG TABLET PO SCH (20:08)
[2020-12-19] MEDS: ROSUVASTATIN 20 MG TABLET PO SCH (20:08)
[2020-12-19] MEDS: ASPIRIN CHEW 81 MG TABLET PO SCH (20:08)
[2020-12-19] MEDS: ENOXAPARIN 100 MG/ML SYRINGE SUBCUT SCH (22:12)
[2020-12-20] MEDS: MIDAZOLAM 100 MG in SODIUM CHLORIDE 0.9% 80 ML IV PRN ×2 (00:39→14:54)
[2020-12-20] MEDS: methylPREDNISolone SOD SUC 40 MG/1 ML VIAL IV SCH ×4 (01:46→21:09)
[2020-12-20] MEDS: METOCLOPRAMIDE 10 MG/2 ML VIAL IV SCH ×3 (01:46→17:30)
[2020-12-20] MEDS: ALBUMIN 25% 12.5 GM/50 ML VIAL IV SCH ×3 (01:46→18:58)
[2020-12-20 03:14] LABS: ABG Base Excess 2.4 MMOL/L (-2.5-2.5); ABG HCO3 26.5 MMOL/L (20-26); ABG Oxygen Saturation 94.8 % (95-100); ABG PCO2 51.3 MM HG (35-48); ABG PH 7.355 (7.35-7.45); ABG PO2 76.5 MM HG (80-95); ABG TCO2 26.3 MMOL/L (23-27)
[2020-12-20 04:57] LABS: Basophils % 0.1 % (0.0-0.8); Hematocrit 31.6 VOL% (42.0-52.0); Immature Granulocytes % 1.4 %; Immature Granulocytes Absolute 0.14 #; Lymphocytes # 0.1 10*3/uL (1.4-4.0); Lymphocytes % 1.4 % (21.2-54.2); Mean Corpuscular HGB Conc 31.6 GM/DL (32-36); Mean Corpuscular Volume 95.2 FL (87-102); Mean Platelet Volume 11.2 FL (9.6-12.0); Monocytes % 2.9 % (1.7-12.7); Neutrophils % 94.2 % (38.7-73.9); Platelet Count 172 T/CUMM (130-400); Red Blood Count 3.32 MC/CUMM (3.8-5.5); Red Cell Distribution Width 14.8 % (9.3-17.3); White Blood Count 10.3 T/CUMM (4-12)
[2020-12-20 05:25] LABS: Calcium 7.9 MG/DL (8.5-10.1); Osmolality,Calculated 293.3 MOS/KG (273-304); Potassium 4.1 MMOL/L (3.5-5.1)
[2020-12-20 05:28] LABS: Albumin 2.7 G/DL (3.4-5.0); Bilirubin,Direct 0.1 MG/DL (0.0-0.20); Bilirubin,Indirect 0.7 MG/DL (0.0-1.0); Bilirubin,Total 0.8 MG/DL (0.20-1.00); Total Protein 5.3 G/DL (6.4-8.2)
[2020-12-20 05:31] LABS: Lymphocytes 1 % (20-55); Platelet Estimate Adequate; Segmented Neutrophils 98 % (50-85); Total Cells Counted 100
[2020-12-20 05:32] LABS: Hypochromasia 1+; Microcytosis 1+
[2020-12-20] MEDS: ALBUTEROL INHALER 18 GM INH SCH (05:38)
[2020-12-20] MEDS: ALBUTEROL/IPRATROPIUM 3 ML NEB RESP TX SCH ×3 (07:24→18:03)
[2020-12-20] MEDS: BUDESONIDE 0.5 MG/2 ML NEB RESP TX SCH ×2 (07:24→18:03)
[2020-12-20] MEDS: ARFORMOTEROL 15 MCG/2 ML NEB RESP TX SCH ×2 (07:24→18:03)
[2020-12-20] MEDS: QUEtiapine 25 MG TABLET PO SCH ×2 (08:44→21:09)
[2020-12-20] MEDS: buPROPion 75 MG TABLET PO SCH ×2 (08:44→21:09)
[2020-12-20] MEDS: ASCORBIC ACID 500 MG TABLET NG SCH ×2 (08:44→21:09)
[2020-12-20] MEDS: AMIODARONE 200 MG TABLET PO SCH (08:45)
[2020-12-20] MEDS: POLYETHYLENE GLYCOL POWDER 17 GM PACK PO SCH (08:45)
[2020-12-20] MEDS: PANTOPRAZOLE 40 MG VIAL IV SCH (08:50)
[2020-12-20] MEDS: METOPROLOL TARTRATE 5 MG/5 ML VIAL IV PRN ×2 (11:05→18:56)
[2020-12-20] MEDS: HYDROmorphone 2 MG/1 ML VIAL IV PRN (11:07)
[2020-12-20] MEDS: METOPROLOL TARTRATE 25 MG TABLET PO SCH ×2 (11:47→21:09)
[2020-12-20] MEDS: FLUCONAZOLE INJ 200 MG/100 ML PREMIX IV SCH (11:51)
[2020-12-20] MEDS: TRELEGY ELLIPTA INH SCH (14:52)
[2020-12-20] MEDS: ROSUVASTATIN 20 MG TABLET PO SCH (21:09)
[2020-12-20] MEDS: POLYCARBOPHIL 625 MG TABLET PO SCH (21:09)
[2020-12-20] MEDS: ASPIRIN CHEW 81 MG TABLET PO SCH (21:09)
[2020-12-20] MEDS: ENOXAPARIN 100 MG/ML SYRINGE SUBCUT SCH (22:43)
[2020-12-21] MEDS: MAGNESIUM HYDROXIDE SUSP 30 ML UDCUP PO PRN (00:27)
[2020-12-21] MEDS: ALBUTEROL/IPRATROPIUM 3 ML NEB RESP TX SCH ×4 (01:40→19:10)
[2020-12-21] MEDS: METOCLOPRAMIDE 10 MG/2 ML VIAL IV SCH ×3 (02:51→18:05)
[2020-12-21] MEDS: methylPREDNISolone SOD SUC 40 MG/1 ML VIAL IV SCH ×3 (02:52→18:15)
[2020-12-21] MEDS: ALBUMIN 25% 12.5 GM/50 ML VIAL IV SCH ×3 (02:52→18:05)
[2020-12-21 02:54] LABS: ABG Base Excess 2.5 MMOL/L (-2.5-2.5); ABG HCO3 26.7 MMOL/L (20-26); ABG Oxygen Saturation 98.4 % (95-100); ABG PCO2 53.4 MM HG (35-48); ABG PH 7.345 (7.35-7.45); ABG TCO2 26.7 MMOL/L (23-27)
[2020-12-21] MEDS: BISACODYL 10 MG SUPP RECTAL PRN (03:30)
[2020-12-21 04:33] LABS: Basophils % 0.1 % (0.0-0.8); Hematocrit 31.7 VOL% (42.0-52.0); Hemoglobin 10.1 GM/DL (14.0-18.0); Immature Granulocytes % 1.6 %; Immature Granulocytes Absolute 0.18 #; Lymphocytes # 0.1 10*3/uL (1.4-4.0); Lymphocytes % 1.1 % (21.2-54.2); Mean Corpuscular HGB Conc 31.9 GM/DL (32-36); Mean Corpuscular Volume 95.8 FL (87-102); Mean Platelet Volume 11.3 FL (9.6-12.0); Neutrophils % 94.2 % (38.7-73.9); Platelet Count 173 T/CUMM (130-400); Red Blood Count 3.31 MC/CUMM (3.8-5.5); White Blood Count 11.5 T/CUMM (4-12)
[2020-12-21 04:39] LABS: Calcium 8.1 MG/DL (8.5-10.1); Osmolality,Calculated 289.5 MOS/KG (273-304); Potassium 4.4 MMOL/L (3.5-5.1)
[2020-12-21 05:08] LABS: Band Neutrophils 2 % (0-10); Hypochromasia 1+; Lymphocytes 1 % (20-55); Microcytosis 1+; Segmented Neutrophils 93 % (50-85); Total Cells Counted 100
[2020-12-21 05:09] LABS: Platelet Estimate Adequate
[2020-12-21] MEDS: MIDAZOLAM 100 MG in SODIUM CHLORIDE 0.9% 80 ML IV PRN ×2 (05:33→20:38)
[2020-12-21] MEDS: BUDESONIDE 0.5 MG/2 ML NEB RESP TX SCH ×2 (07:05→19:10)
[2020-12-21] MEDS: PANTOPRAZOLE 40 MG VIAL IV SCH (08:45)
[2020-12-21] MEDS: HYDROmorphone 2 MG/1 ML VIAL IV PRN (08:45)
[2020-12-21] MEDS: AMIODARONE 200 MG TABLET PO SCH (08:50)
[2020-12-21] MEDS: POLYETHYLENE GLYCOL POWDER 17 GM PACK PO SCH (08:50)
[2020-12-21] MEDS: buPROPion 75 MG TABLET PO SCH ×2 (08:50→20:40)
[2020-12-21] MEDS: QUEtiapine 25 MG TABLET PO SCH ×2 (08:50→20:40)
[2020-12-21] MEDS: ASCORBIC ACID 500 MG TABLET NG SCH ×2 (08:50→20:39)
[2020-12-21] MEDS: METOPROLOL TARTRATE 25 MG TABLET PO SCH ×2 (08:50→20:40)
[2020-12-21] MEDS: FLUCONAZOLE INJ 200 MG/100 ML PREMIX IV SCH (12:45)
[2020-12-21] MEDS: ROSUVASTATIN 20 MG TABLET PO SCH (20:40)
[2020-12-21] MEDS: POLYCARBOPHIL 625 MG TABLET PO SCH (20:40)
[2020-12-21] MEDS: ASPIRIN CHEW 81 MG TABLET PO SCH (20:41)
[2020-12-21] MEDS: ENOXAPARIN 100 MG/ML SYRINGE SUBCUT SCH (23:24)
[2020-12-22] MEDS: ALBUTEROL/IPRATROPIUM 3 ML NEB RESP TX SCH ×4 (00:09→19:23)
[2020-12-22] MEDS: METOCLOPRAMIDE 10 MG/2 ML VIAL IV SCH ×3 (02:38→17:40)
[2020-12-22] MEDS: ALBUMIN 25% 12.5 GM/50 ML VIAL IV SCH ×3 (02:57→17:40)
[2020-12-22] MEDS: methylPREDNISolone SOD SUC 40 MG/1 ML VIAL IV SCH ×3 (02:58→17:45)
[2020-12-22 04:43] LABS: Basophils % 0.1 % (0.0-0.8); Hematocrit 34.1 VOL% (42.0-52.0); Hemoglobin 10.6 GM/DL (14.0-18.0); Immature Granulocytes % 1.5 %; Immature Granulocytes Absolute 0.24 #; Lymphocytes # 0.2 10*3/uL (1.4-4.0); Lymphocytes % 1.1 % (21.2-54.2); Mean Corpuscular HGB Conc 31.1 GM/DL (32-36); Mean Corpuscular Volume 96.6 FL (87-102); Mean Platelet Volume 11.3 FL (9.6-12.0); Monocytes % 3.1 % (1.7-12.7); Neutrophils % 94.2 % (38.7-73.9); Platelet Count 179 T/CUMM (130-400); Red Blood Count 3.53 MC/CUMM (3.8-5.5); Red Cell Distribution Width 15.6 % (9.3-17.3); White Blood Count 16.1 T/CUMM (4-12)
[2020-12-22 04:49] LABS: ABG Base Excess 2.7 MMOL/L (-2.5-2.5); ABG HCO3 26.7 MMOL/L (20-26); ABG Oxygen Saturation 96.2 % (95-100); ABG PCO2 55.3 MM HG (35-48); ABG PH 7.337 (7.35-7.45); ABG PO2 84.1 MM HG (80-95); ABG TCO2 26.9 MMOL/L (23-27); Allen Test Positive; Pt O2 Delivery Device Ventilator
[2020-12-22 05:14] LABS: Potassium 4.9 MMOL/L (3.5-5.1)
[2020-12-22 05:15] LABS: Hypochromasia 1+; Lymphocytes 1 % (20-55); Microcytosis 1+; Platelet Estimate Adequate; Segmented Neutrophils 98 % (50-85); Total Cells Counted 100
[2020-12-22] MEDS: BUDESONIDE 0.5 MG/2 ML NEB RESP TX SCH ×2 (07:15→19:23)
[2020-12-22] MEDS: ASCORBIC ACID 500 MG TABLET NG SCH ×2 (09:05→20:46)
[2020-12-22] MEDS: POLYETHYLENE GLYCOL POWDER 17 GM PACK PO SCH (09:05)
[2020-12-22] MEDS: METOPROLOL TARTRATE 25 MG TABLET PO SCH ×2 (09:05→20:46)
[2020-12-22] MEDS: PANTOPRAZOLE 40 MG VIAL IV SCH (09:05)
[2020-12-22] MEDS: AMIODARONE 200 MG TABLET PO SCH (09:05)
[2020-12-22] MEDS: QUEtiapine 25 MG TABLET PO SCH ×2 (09:05→20:46)
[2020-12-22] MEDS: buPROPion 75 MG TABLET PO SCH ×2 (09:05→20:45)
[2020-12-22] MEDS ORDERED: AMINOPHYLLINE 125 MG in SODIUM CHLORIDE 0.9% 100 ML IV ONE (09:13)
[2020-12-22] MEDS: CEPHALEXIN 50 MG/ML 100 ML/BOTTLE PER TUBE SCH ×4 (09:45→21:00)
[2020-12-22] MEDS: FLUCONAZOLE INJ 200 MG/100 ML PREMIX IV SCH (10:45)
[2020-12-22] MEDS: AMINOPHYLLINE 500 MG in SODIUM CHLORIDE 0.9% 480 ML IV SCH ×2 (11:15→21:16)
[2020-12-22] MEDS: MIDAZOLAM 100 MG in SODIUM CHLORIDE 0.9% 80 ML IV PRN (11:30)
[2020-12-22] MEDS: ARFORMOTEROL 15 MCG/2 ML NEB RESP TX SCH ×2 (12:20→19:23)
[2020-12-22] MEDS: POLYCARBOPHIL 625 MG TABLET PO SCH (20:45)
[2020-12-22] MEDS: ASPIRIN CHEW 81 MG TABLET PO SCH (20:45)
[2020-12-22] MEDS: ROSUVASTATIN 20 MG TABLET PO SCH (20:46)
[2020-12-22] MEDS: ENOXAPARIN 100 MG/ML SYRINGE SUBCUT SCH (22:55)
[2020-12-23] MEDS: ALBUTEROL/IPRATROPIUM 3 ML NEB RESP TX SCH ×4 (00:01→18:20)
[2020-12-23] MEDS: METOCLOPRAMIDE 10 MG/2 ML VIAL IV SCH ×3 (01:32→18:46)
[2020-12-23] MEDS: ALBUMIN 25% 12.5 GM/50 ML VIAL IV SCH ×3 (01:35→18:00)
[2020-12-23] MEDS: methylPREDNISolone SOD SUC 40 MG/1 ML VIAL IV SCH ×3 (03:34→19:22)
[2020-12-23 03:35] LABS: Basophils % 0.2 % (0.0-0.8); Hemoglobin 10.7 GM/DL (14.0-18.0); Immature Granulocytes % 1.1 %; Immature Granulocytes Absolute 0.29 #; Lymphocytes # 0.2 10*3/uL (1.4-4.0); Lymphocytes % 0.7 % (21.2-54.2); Mean Corpuscular HGB Conc 31.5 GM/DL (32-36); Mean Corpuscular Volume 95.2 FL (87-102); Mean Platelet Volume 11.2 FL (9.6-12.0); Monocytes % 3.5 % (1.7-12.7); Neutrophils % 94.5 % (38.7-73.9); Platelet Count 164 T/CUMM (130-400); Red Blood Count 3.57 MC/CUMM (3.8-5.5); Red Cell Distribution Width 15.5 % (9.3-17.3); White Blood Count 26.3 T/CUMM (4-12)
[2020-12-23 03:55] LABS: Calcium 7.8 MG/DL (8.5-10.1); Potassium 4.6 MMOL/L (3.5-5.1)
[2020-12-23 04:06] LABS: Osmolality,Calculated 292.3 MOS/KG (273-304)
[2020-12-23 04:09] LABS: Hypochromasia Slight; Microcytosis Slight; Platelet Estimate Adequate; Segmented Neutrophils 95 % (50-85); Total Cells Counted 100
[2020-12-23 04:47] LABS: ABG Base Excess 2.6 MMOL/L (-2.5-2.5); ABG HCO3 29.2 MMOL/L (20-26); ABG Oxygen Saturation 96.4 % (95-100); ABG PCO2 54.3 MM HG (35-48); ABG PH 7.348 (7.35-7.45); ABG PO2 88.3 MM HG (80-95); ABG TCO2 30.8 MMOL/L (23-27)
[2020-12-23] MEDS: MIDAZOLAM 100 MG in SODIUM CHLORIDE 0.9% 80 ML IV PRN (06:09)
[2020-12-23] MEDS: AMINOPHYLLINE 500 MG in SODIUM CHLORIDE 0.9% 480 ML IV SCH ×2 (07:48→17:49)
[2020-12-23] MEDS: ARFORMOTEROL 15 MCG/2 ML NEB RESP TX SCH ×2 (08:10→18:20)
[2020-12-23] MEDS: BUDESONIDE 0.5 MG/2 ML NEB RESP TX SCH ×2 (08:10→18:20)
[2020-12-23] MEDS: AMIODARONE 200 MG TABLET PO SCH (08:28)
[2020-12-23] MEDS: buPROPion 75 MG TABLET PO SCH ×2 (08:29→21:37)
[2020-12-23] MEDS: METOPROLOL TARTRATE 25 MG TABLET PO SCH (08:29)
[2020-12-23] MEDS: QUEtiapine 25 MG TABLET PO SCH ×2 (08:29→21:37)
[2020-12-23] MEDS: ASCORBIC ACID 500 MG TABLET NG SCH ×2 (08:29→21:36)
[2020-12-23] MEDS: CEPHALEXIN 50 MG/ML 100 ML/BOTTLE PER TUBE SCH ×4 (08:30→21:37)
[2020-12-23] MEDS: PANTOPRAZOLE 40 MG VIAL IV SCH (08:34)
[2020-12-23] MEDS: POLYETHYLENE GLYCOL POWDER 17 GM PACK PO SCH (08:35)
[2020-12-23] MEDS ORDERED: METOPROLOL TARTRATE 25 MG TABLET NG ONE (09:06)
[2020-12-23] MEDS ORDERED: SODIUM CHLORIDE 0.45% 1,000 ML IV SCH (09:30)
[2020-12-23] MEDS: METOPROLOL TARTRATE 5 MG/5 ML VIAL IV PRN (09:33)
[2020-12-23] MEDS: FLUCONAZOLE INJ 200 MG/100 ML PREMIX IV SCH ×2 (15:13→15:14)
[2020-12-23] MEDS: ASPIRIN CHEW 81 MG TABLET PO SCH (21:36)
[2020-12-23] MEDS: POLYCARBOPHIL 625 MG TABLET PO SCH (21:36)
[2020-12-23] MEDS: METOPROLOL TARTRATE 50 MG TABLET NG SCH (21:37)
[2020-12-23] MEDS: ROSUVASTATIN 20 MG TABLET PO SCH (21:37)
[2020-12-23] MEDS: ENOXAPARIN 100 MG/ML SYRINGE SUBCUT SCH (23:19)
[2020-12-24] MEDS: ALBUTEROL/IPRATROPIUM 3 ML NEB RESP TX SCH ×4 (00:05→19:05)
[2020-12-24] MEDS: MIDAZOLAM 100 MG in SODIUM CHLORIDE 0.9% 80 ML IV PRN ×2 (01:32→21:43)
[2020-12-24] MEDS: ALBUMIN 25% 12.5 GM/50 ML VIAL IV SCH (02:37)
[2020-12-24] MEDS: METOCLOPRAMIDE 10 MG/2 ML VIAL IV SCH ×3 (02:48→18:36)
[2020-12-24] MEDS: MAGNESIUM HYDROXIDE SUSP 30 ML UDCUP PO PRN (03:03)
[2020-12-24 03:16] LABS: ABG Base Excess 2.4 MMOL/L (-2.5-2.5); ABG HCO3 28.9 MMOL/L (20-26); ABG Oxygen Saturation 96.6 % (95-100); ABG PCO2 55.1 MM HG (35-48); ABG PH 7.338 (7.35-7.45); ABG PO2 94.9 MM HG (80-95); ABG TCO2 30.6 MMOL/L (23-27)
[2020-12-24] MEDS: methylPREDNISolone SOD SUC 40 MG/1 ML VIAL IV SCH ×3 (03:43→18:37)
[2020-12-24 04:09] LABS: Basophils % 0.1 % (0.0-0.8); Hematocrit 29.5 VOL% (42.0-52.0); Hemoglobin 9.1 GM/DL (14.0-18.0); Immature Granulocytes Absolute 0.23 #; Lymphocytes # 0.1 10*3/uL (1.4-4.0); Lymphocytes % 0.6 % (21.2-54.2); Mean Corpuscular HGB Conc 30.8 GM/DL (32-36); Mean Platelet Volume 11.6 FL (9.6-12.0); Monocytes % 2.7 % (1.7-12.7); Neutrophils % 95.6 % (38.7-73.9); Platelet Count 145 T/CUMM (130-400); Red Blood Count 2.98 MC/CUMM (3.8-5.5); Red Cell Distribution Width 15.8 % (9.3-17.3); White Blood Count 22.3 T/CUMM (4-12)
[2020-12-24 04:17] LABS: Calcium 7.4 MG/DL (8.5-10.1); Potassium 4.5 MMOL/L (3.5-5.1)
[2020-12-24] MEDS: AMINOPHYLLINE 500 MG in SODIUM CHLORIDE 0.9% 480 ML IV SCH ×2 (04:41→14:54)
[2020-12-24 04:50] LABS: Band Neutrophils 3 % (0-10); Lymphocytes 1 % (20-55); Segmented Neutrophils 93 % (50-85); Total Cells Counted 100
[2020-12-24 04:51] LABS: Hypochromasia Slight; Microcytosis Slight; Platelet Estimate Adequate
[2020-12-24] MEDS: ARFORMOTEROL 15 MCG/2 ML NEB RESP TX SCH ×2 (07:30→19:05)
[2020-12-24] MEDS: BUDESONIDE 0.5 MG/2 ML NEB RESP TX SCH ×2 (07:30→19:05)
[2020-12-24] MEDS: QUEtiapine 25 MG TABLET PO SCH ×2 (09:02→21:47)
[2020-12-24] MEDS: AMIODARONE 200 MG TABLET PO SCH (09:02)
[2020-12-24] MEDS: METOPROLOL TARTRATE 50 MG TABLET NG SCH ×2 (09:02→21:46)
[2020-12-24] MEDS: buPROPion 75 MG TABLET PO SCH ×2 (09:02→21:47)
[2020-12-24] MEDS: POLYETHYLENE GLYCOL POWDER 17 GM PACK PO SCH (09:03)
[2020-12-24] MEDS: PANTOPRAZOLE 40 MG VIAL IV SCH (09:05)
[2020-12-24] MEDS: FLUCONAZOLE INJ 200 MG/100 ML PREMIX IV SCH (11:00)
[2020-12-24] MEDS: CEPHALEXIN 50 MG/ML 100 ML/BOTTLE PER TUBE SCH ×4 (12:24→21:47)
[2020-12-24] MEDS: ASCORBIC ACID 500 MG TABLET NG SCH ×2 (12:24→21:46)
[2020-12-24] MEDS: HYDROmorphone 2 MG/1 ML VIAL IV PRN (13:05)
[2020-12-24] MEDS: ASPIRIN CHEW 81 MG TABLET PO SCH (21:46)
[2020-12-24] MEDS: ROSUVASTATIN 20 MG TABLET PO SCH (21:46)
[2020-12-24] MEDS: POLYCARBOPHIL 625 MG TABLET PO SCH (21:53)
[2020-12-24] MEDS: ENOXAPARIN 100 MG/ML SYRINGE SUBCUT SCH (23:30)
[2020-12-25] MEDS: AMINOPHYLLINE 500 MG in SODIUM CHLORIDE 0.9% 480 ML IV SCH ×4 (00:56→20:46)
[2020-12-25] MEDS: METOCLOPRAMIDE 10 MG/2 ML VIAL IV SCH ×3 (00:59→17:19)
[2020-12-25] MEDS: MAGNESIUM HYDROXIDE SUSP 30 ML UDCUP PO PRN (01:01)
[2020-12-25] MEDS: ALBUTEROL/IPRATROPIUM 3 ML NEB RESP TX SCH ×4 (01:35→18:02)
[2020-12-25 02:20] LABS: ABG HCO3 25.2 MMOL/L (20-26); ABG Oxygen Saturation 96.7 % (95-100); ABG PCO2 56.6 MM HG (35-48); ABG PH 7.305 (7.35-7.45); ABG PO2 87.3 MM HG (80-95); ABG TCO2 26.1 MMOL/L (23-27)
[2020-12-25] MEDS: methylPREDNISolone SOD SUC 40 MG/1 ML VIAL IV SCH ×3 (03:00→18:13)
[2020-12-25 03:30] LABS: Basophils % 0.1 % (0.0-0.8); Hematocrit 30.2 VOL% (42.0-52.0); Hemoglobin 9.3 GM/DL (14.0-18.0); Immature Granulocytes % 1.3 %; Immature Granulocytes Absolute 0.24 #; Lymphocytes # 0.1 10*3/uL (1.4-4.0); Lymphocytes % 0.6 % (21.2-54.2); Mean Corpuscular HGB Conc 30.8 GM/DL (32-36); Mean Corpuscular Volume 98.7 FL (87-102); Mean Platelet Volume 11.6 FL (9.6-12.0); Monocytes % 2.4 % (1.7-12.7); Neutrophils % 95.6 % (38.7-73.9); Platelet Count 126 T/CUMM (130-400); Red Blood Count 3.06 MC/CUMM (3.8-5.5); Red Cell Distribution Width 16.2 % (9.3-17.3)
[2020-12-25 03:31] LABS: Calcium 7.7 MG/DL (8.5-10.1); Osmolality,Calculated 298.8 MOS/KG (273-304); Potassium 4.3 MMOL/L (3.5-5.1)
[2020-12-25] MEDS: BUDESONIDE 0.5 MG/2 ML NEB RESP TX SCH ×2 (07:31→18:02)
[2020-12-25] MEDS: ARFORMOTEROL 15 MCG/2 ML NEB RESP TX SCH ×2 (07:31→18:02)
[2020-12-25] MEDS: METOPROLOL TARTRATE 50 MG TABLET NG SCH ×2 (09:48→20:42)
[2020-12-25] MEDS: buPROPion 75 MG TABLET PO SCH ×2 (09:48→20:43)
[2020-12-25] MEDS: AMIODARONE 200 MG TABLET PO SCH (09:48)
[2020-12-25] MEDS: QUEtiapine 25 MG TABLET PO SCH ×2 (09:48→20:43)
[2020-12-25] MEDS: PANTOPRAZOLE 40 MG VIAL IV SCH (09:49)
[2020-12-25] MEDS: POLYETHYLENE GLYCOL POWDER 17 GM PACK PO SCH (09:50)
[2020-12-25] MEDS: CEPHALEXIN 50 MG/ML 100 ML/BOTTLE PER TUBE SCH ×4 (09:52→20:44)
[2020-12-25] MEDS: ASCORBIC ACID 500 MG TABLET NG SCH ×3 (09:53→20:43)
[2020-12-25] MEDS: MIDAZOLAM 100 MG in SODIUM CHLORIDE 0.9% 80 ML IV PRN (15:18)
[2020-12-25] MEDS: HYDROmorphone 2 MG/1 ML VIAL IV PRN (18:13)
[2020-12-25] MEDS: POLYCARBOPHIL 625 MG TABLET PO SCH (20:42)
[2020-12-25] MEDS: ASPIRIN CHEW 81 MG TABLET PO SCH (20:43)
[2020-12-25] MEDS: ROSUVASTATIN 20 MG TABLET PO SCH (20:43)
[2020-12-25] MEDS: ENOXAPARIN 100 MG/ML SYRINGE SUBCUT SCH (23:35)
[2020-12-26] MEDS: ALBUTEROL/IPRATROPIUM 3 ML NEB RESP TX SCH ×4 (00:02→19:30)
[2020-12-26] MEDS: METOCLOPRAMIDE 10 MG/2 ML VIAL IV SCH ×3 (01:10→17:01)
[2020-12-26 03:07] LABS: ABG Base Excess 0.1 MMOL/L (-2.5-2.5); ABG HCO3 24.5 MMOL/L (20-26); ABG Oxygen Saturation 96.5 % (95-100); ABG PCO2 54.7 MM HG (35-48); ABG PH 7.304 (7.35-7.45); ABG PO2 80.2 MM HG (80-95); ABG TCO2 25.1 MMOL/L (23-27)
[2020-12-26] MEDS: methylPREDNISolone SOD SUC 40 MG/1 ML VIAL IV SCH ×3 (03:45→21:10)
[2020-12-26 03:55] LABS: Hematocrit 29.7 VOL% (42.0-52.0); Hemoglobin 9.5 GM/DL (14.0-18.0); Immature Granulocytes % 0.6 %; Immature Granulocytes Absolute 0.07 #; Lymphocytes # 0.1 10*3/uL (1.4-4.0); Lymphocytes % 0.8 % (21.2-54.2); Mean Platelet Volume 11.4 FL (9.6-12.0); Monocytes % 3.4 % (1.7-12.7); Neutrophils % 95.2 % (38.7-73.9); Red Cell Distribution Width 16.4 % (9.3-17.3); White Blood Count 11.6 T/CUMM (4-12)
[2020-12-26 03:57] LABS: Platelet Count 93 T/CUMM (130-400)
[2020-12-26 04:16] LABS: Calcium 7.7 MG/DL (8.5-10.1)
[2020-12-26 04:18] LABS: Osmolality,Calculated 290.5 MOS/KG (273-304); Potassium 4.7 MMOL/L (3.5-5.1)
[2020-12-26 04:31] LABS: Band Neutrophils 4 % (0-10); Hypochromasia Slight; Lymphocytes 1 % (20-55); Microcytosis 1+; Segmented Neutrophils 94 % (50-85); Total Cells Counted 100
[2020-12-26 04:32] LABS: Platelet Estimate Decreased
[2020-12-26] MEDS: AMINOPHYLLINE 500 MG in SODIUM CHLORIDE 0.9% 480 ML IV SCH ×2 (06:28→17:01)
[2020-12-26] MEDS: ARFORMOTEROL 15 MCG/2 ML NEB RESP TX SCH ×2 (07:24→19:30)
[2020-12-26] MEDS: BUDESONIDE 0.5 MG/2 ML NEB RESP TX SCH ×2 (07:24→19:30)
[2020-12-26] MEDS: POLYETHYLENE GLYCOL POWDER 17 GM PACK PO SCH (09:11)
[2020-12-26] MEDS: MIDAZOLAM 100 MG in SODIUM CHLORIDE 0.9% 80 ML IV PRN (09:11)
[2020-12-26] MEDS: buPROPion 75 MG TABLET PO SCH ×2 (09:12→21:10)
[2020-12-26] MEDS: QUEtiapine 25 MG TABLET PO SCH ×2 (09:12→21:10)
[2020-12-26] MEDS: ASCORBIC ACID 500 MG TABLET NG SCH ×2 (09:12→21:10)
[2020-12-26] MEDS: PANTOPRAZOLE 40 MG VIAL IV SCH (09:12)
[2020-12-26] MEDS: CEPHALEXIN 50 MG/ML 100 ML/BOTTLE PER TUBE SCH (09:15)
[2020-12-26] MEDS ORDERED: VANCOMYCIN INJ 1,500 MG in SODIUM CHLORIDE 0.9% 250 ML IV ONE (09:30)
[2020-12-26] MEDS ORDERED: BUPIVACAINE 0.5% 50 ML VIAL ONE (09:37)
[2020-12-26] MEDS ORDERED: TISSUE ADHESIVE 1 EACH APPLICATOR TOP ONE (09:38)
[2020-12-26] MEDS ORDERED: HEPARIN 5,000 UNIT/1 ML VIAL ONE (09:38)
[2020-12-26] MEDS ORDERED: LIDOCAINE 1%/EPI INJ 20 ML VIAL ONE (09:38)
[2020-12-26] MEDS ORDERED: CHLOROPROCAINE 2% ONE (09:38)
[2020-12-26] MEDS ORDERED: VANCOMYCIN 500 MG VIAL ONE (09:38)
[2020-12-26] MEDS ORDERED: VANCOMYCIN INJ 1,500 MG in SODIUM CHLORIDE 0.9% 500 ML IV ONE (10:00)
[2020-12-26] MEDS: AMIODARONE 200 MG TABLET PO SCH (10:06)
[2020-12-26] MEDS: METOPROLOL TARTRATE 50 MG TABLET NG SCH (10:06)
[2020-12-26] MEDS ORDERED: ROCURONIUM 50 MG/5 ML VIAL IV ONE (10:14)
[2020-12-26] MEDS ORDERED: MIDAZOLAM 2 MG/2 ML VIAL ONE (10:14)
[2020-12-26] MEDS ORDERED: SEVOFLURANE 1 UNIT/15 MINUTE INH ONE (10:14)
[2020-12-26] MEDS ORDERED: ePHEDrine 50 MG/ML VIAL ONE (10:40)
[2020-12-26] MEDS ORDERED: PHENYLEPHRINE 1 MG/10 ML SYRINGE IV ONE ×2 (10:50→11:55)
[2020-12-26] MEDS: METOPROLOL TARTRATE 25 MG TABLET PO SCH ×2 (14:40→21:11)
[2020-12-26] MEDS ORDERED: OXYMETAZOLINE 0.05% NASAL SPRAY 15 ML BOTTLE BOTH NARES PRN (16:00)
[2020-12-26] MEDS: ASPIRIN CHEW 81 MG TABLET PO SCH (21:10)
[2020-12-26] MEDS: POLYCARBOPHIL 625 MG TABLET PO SCH (21:11)
[2020-12-26] MEDS: ROSUVASTATIN 20 MG TABLET PO SCH (21:11)
[2020-12-26] MEDS: METOPROLOL TARTRATE 5 MG/5 ML VIAL IV PRN (21:29)
[2020-12-26] MEDS ORDERED: DILTIAZEM 50 MG/10 ML VIAL IV ONE (23:27)
[2020-12-27] MEDS: METOCLOPRAMIDE 10 MG/2 ML VIAL IV SCH ×3 (00:20→16:12)
[2020-12-27] MEDS: HYDROmorphone 2 MG/1 ML VIAL IV PRN (00:40)
[2020-12-27] MEDS: ALBUTEROL/IPRATROPIUM 3 ML NEB RESP TX SCH ×4 (00:53→19:45)
[2020-12-27] MEDS ORDERED: AMIODARONE INJ 450 MG in DEXTROSE 5% 241 ML IV SCH (03:00)
[2020-12-27] MEDS: methylPREDNISolone SOD SUC 40 MG/1 ML VIAL IV SCH ×3 (03:26→20:32)
[2020-12-27 04:26] LABS: Basophils % 0.1 % (0.0-0.8); Hematocrit 31.9 VOL% (42.0-52.0); Hemoglobin 9.7 GM/DL (14.0-18.0); Immature Granulocytes % 0.4 %; Immature Granulocytes Absolute 0.04 #; Lymphocytes # 0.1 10*3/uL (1.4-4.0); Lymphocytes % 0.5 % (21.2-54.2); Mean Corpuscular HGB Conc 30.4 GM/DL (32-36); Mean Corpuscular Volume 97.6 FL (87-102); Monocytes % 3.5 % (1.7-12.7); Neutrophils % 95.5 % (38.7-73.9); Platelet Count 122 T/CUMM (130-400); Red Blood Count 3.27 MC/CUMM (3.8-5.5); Red Cell Distribution Width 16.8 % (9.3-17.3); White Blood Count 11.1 T/CUMM (4-12)
[2020-12-27 04:30] LABS: Calcium 7.8 MG/DL (8.5-10.1); Osmolality,Calculated 299.8 MOS/KG (273-304); Potassium 4.6 MMOL/L (3.5-5.1)
[2020-12-27 04:36] LABS: ABG Base Excess -1.8 MMOL/L (-2.5-2.5); ABG HCO3 24.9 MMOL/L (20-26); ABG Oxygen Saturation 92.6 % (95-100); ABG PCO2 51.2 MM HG (35-48); ABG PH 7.305 (7.35-7.45); ABG PO2 65.1 MM HG (80-95); ABG TCO2 26.5 MMOL/L (23-27)
[2020-12-27 04:47] LABS: Band Neutrophils 5 % (0-10); Lymphocytes 2 % (20-55); Platelet Estimate Normal; Segmented Neutrophils 89 % (50-85); Total Cells Counted 100
[2020-12-27] MEDS: METOPROLOL TARTRATE 5 MG/5 ML VIAL IV PRN (05:40)
[2020-12-27] MEDS: AMINOPHYLLINE 500 MG in SODIUM CHLORIDE 0.9% 480 ML IV SCH ×3 (05:47→18:38)
[2020-12-27] MEDS: MIDAZOLAM 100 MG in SODIUM CHLORIDE 0.9% 80 ML IV PRN (05:55)
[2020-12-27] MEDS: ENOXAPARIN 100 MG/ML SYRINGE SUBCUT SCH (06:42)
[2020-12-27] MEDS: ARFORMOTEROL 15 MCG/2 ML NEB RESP TX SCH ×2 (07:10→19:45)
[2020-12-27] MEDS: BUDESONIDE 0.5 MG/2 ML NEB RESP TX SCH ×2 (07:10→19:45)
[2020-12-27] MEDS ORDERED: DIGOXIN 0.5 MG/2 ML AMP IV ONE (07:55)
[2020-12-27] MEDS: POLYETHYLENE GLYCOL POWDER 17 GM PACK PO SCH (08:05)
[2020-12-27] MEDS: AMIODARONE INJ 450 MG in DEXTROSE 5% 241 ML IV SCH (08:25)
[2020-12-27] MEDS: METOPROLOL TARTRATE 25 MG TABLET PO SCH ×3 (08:40→20:31)
[2020-12-27] MEDS: QUEtiapine 25 MG TABLET PO SCH ×2 (08:40→20:31)
[2020-12-27] MEDS: buPROPion 75 MG TABLET PO SCH ×2 (08:40→20:32)
[2020-12-27] MEDS: PANTOPRAZOLE 40 MG VIAL IV SCH (08:40)
[2020-12-27] MEDS: ASCORBIC ACID 500 MG TABLET NG SCH ×2 (08:41→20:31)
[2020-12-27] MEDS: DILTIAZEM INJ 100 MG in SODIUM CHLORIDE 0.9% 100 ML IV SCH ×2 (08:41→22:45)
[2020-12-27] MEDS: FLUCONAZOLE INJ 200 MG/100 ML PREMIX IV SCH (09:41)
[2020-12-27] MEDS: LEVOFLOXACIN INJ 500 MG/100 ML PREMIX IV SCH (09:41)
[2020-12-27] MEDS ORDERED: AMIODARONE 450 MG/9 ML VIAL IV ONE (13:07)
[2020-12-27] MEDS: ROSUVASTATIN 20 MG TABLET PO SCH (20:31)
[2020-12-27] MEDS: POLYCARBOPHIL 625 MG TABLET PO SCH (20:31)
[2020-12-27] MEDS: ASPIRIN CHEW 81 MG TABLET PO SCH (20:32)
[2020-12-28] MEDS: METOCLOPRAMIDE 10 MG/2 ML VIAL IV SCH ×3 (00:07→18:28)
[2020-12-28] MEDS: ALBUTEROL/IPRATROPIUM 3 ML NEB RESP TX SCH ×4 (00:13→18:44)
[2020-12-28] MEDS: DILTIAZEM INJ 100 MG in SODIUM CHLORIDE 0.9% 100 ML IV SCH ×2 (04:25→10:45)
[2020-12-28] MEDS: AMIODARONE INJ 450 MG in DEXTROSE 5% 241 ML IV SCH ×2 (04:25→04:46)
[2020-12-28 04:55] LABS: ABG Base Excess -0.4 MMOL/L (-2.5-2.5); ABG HCO3 25.7 MMOL/L (20-26); ABG Oxygen Saturation 92.8 % (95-100); ABG PCO2 48.6 MM HG (35-48); ABG PH 7.341 (7.35-7.45); ABG PO2 66.1 MM HG (80-95); ABG TCO2 27.2 MMOL/L (23-27)
[2020-12-28] MEDS: MIDAZOLAM 100 MG in SODIUM CHLORIDE 0.9% 80 ML IV PRN (06:38)
[2020-12-28] MEDS: AMINOPHYLLINE 500 MG in SODIUM CHLORIDE 0.9% 480 ML IV SCH ×4 (06:39→23:38)
[2020-12-28] MEDS: ARFORMOTEROL 15 MCG/2 ML NEB RESP TX SCH ×2 (06:49→18:44)
[2020-12-28] MEDS: BUDESONIDE 0.5 MG/2 ML NEB RESP TX SCH ×2 (06:49→18:44)
[2020-12-28] MEDS: HYDROmorphone 2 MG/1 ML VIAL IV PRN (07:53)
[2020-12-28] MEDS: ASCORBIC ACID 500 MG TABLET NG SCH ×2 (08:00→22:17)
[2020-12-28] MEDS: POLYETHYLENE GLYCOL POWDER 17 GM PACK PO SCH (08:00)
[2020-12-28] MEDS: QUEtiapine 25 MG TABLET PO SCH ×2 (08:00→22:17)
[2020-12-28] MEDS: buPROPion 75 MG TABLET PO SCH ×2 (08:00→21:07)
[2020-12-28] MEDS: METOPROLOL TARTRATE 25 MG TABLET PO SCH ×3 (08:00→21:07)
[2020-12-28] MEDS: AMIODARONE 200 MG TABLET PO SCH (08:02)
[2020-12-28] MEDS: methylPREDNISolone SOD SUC 40 MG/1 ML VIAL IV SCH ×2 (08:02→22:17)
[2020-12-28] MEDS: PANTOPRAZOLE 40 MG VIAL IV SCH (08:05)
[2020-12-28] MEDS: LEVOFLOXACIN INJ 500 MG/100 ML PREMIX IV SCH (10:46)
[2020-12-28] MEDS: FLUCONAZOLE INJ 200 MG/100 ML PREMIX IV SCH (10:48)
[2020-12-28 10:53] LABS: Basophils % 0.1 % (0.0-0.8); Hematocrit 28.7 VOL% (42.0-52.0); Hemoglobin 8.7 GM/DL (14.0-18.0); Immature Granulocytes % 0.8 %; Immature Granulocytes Absolute 0.08 #; Lymphocytes # 0.1 10*3/uL (1.4-4.0); Lymphocytes % 0.8 % (21.2-54.2); Mean Corpuscular HGB Conc 30.3 GM/DL (32-36); Mean Platelet Volume 11.2 FL (9.6-12.0); Monocytes % 3.8 % (1.7-12.7); Neutrophils % 94.5 % (38.7-73.9); Red Blood Count 2.96 MC/CUMM (3.8-5.5); Red Cell Distribution Width 16.8 % (9.3-17.3); White Blood Count 10.6 T/CUMM (4-12)
[2020-12-28 10:54] LABS: Platelet Count 110 T/CUMM (130-400)
[2020-12-28] MEDS: DILTIAZEM 60 MG TABLET PO SCH ×3 (10:58→21:07)
[2020-12-28 11:14] LABS: Band Neutrophils 2 % (0-10); Hypochromasia Slight; Platelet Estimate Decreased; Segmented Neutrophils 95 % (50-85); Total Cells Counted 100
[2020-12-28] MEDS: BISACODYL 10 MG SUPP RECTAL PRN (15:29)
[2020-12-28] MEDS: ASPIRIN CHEW 81 MG TABLET PO SCH (21:07)
[2020-12-28] MEDS: ROSUVASTATIN 20 MG TABLET PO SCH (21:07)
[2020-12-28] MEDS: POLYCARBOPHIL 625 MG TABLET PO SCH (21:07)
[2020-12-29] MEDS: ALBUTEROL/IPRATROPIUM 3 ML NEB RESP TX SCH ×4 (00:50→18:00)
[2020-12-29] MEDS: METOCLOPRAMIDE 10 MG/2 ML VIAL IV SCH ×3 (00:54→16:47)
[2020-12-29 04:04] LABS: ABG Base Excess -0.9 MMOL/L (-2.5-2.5); ABG HCO3 23.6 MMOL/L (20-26); ABG Oxygen Saturation 92.4 % (95-100); ABG PCO2 52.5 MM HG (35-48); ABG PH 7.303 (7.35-7.45); ABG PO2 63.1 MM HG (80-95); ABG TCO2 24.1 MMOL/L (23-27)
[2020-12-29 04:31] LABS: Basophils % 0.1 % (0.0-0.8); Hematocrit 30.4 VOL% (42.0-52.0); Hemoglobin 9.3 GM/DL (14.0-18.0); Immature Granulocytes % 1.2 %; Lymphocytes # 0.1 10*3/uL (1.4-4.0); Lymphocytes % 0.8 % (21.2-54.2); Mean Corpuscular HGB Conc 30.6 GM/DL (32-36); Mean Corpuscular Volume 97.7 FL (87-102); Mean Platelet Volume 11.3 FL (9.6-12.0); Monocytes % 5.6 % (1.7-12.7); Neutrophils % 92.3 % (38.7-73.9); Platelet Count 133 T/CUMM (130-400); Red Blood Count 3.11 MC/CUMM (3.8-5.5); Red Cell Distribution Width 17.1 % (9.3-17.3); White Blood Count 16.1 T/CUMM (4-12)
[2020-12-29] MEDS: DILTIAZEM 60 MG TABLET PO SCH ×4 (04:37→21:42)
[2020-12-29 04:46] LABS: Calcium 7.6 MG/DL (8.5-10.1); Potassium 5.3 MMOL/L (3.5-5.1)
[2020-12-29 04:56] LABS: Band Neutrophils 2 % (0-10); Lymphocytes 2 % (20-55); Segmented Neutrophils 87 % (50-85); Total Cells Counted 100
[2020-12-29 04:57] LABS: Hypochromasia 1+; Microcytosis 1+; Platelet Estimate Normal
[2020-12-29] MEDS: ARFORMOTEROL 15 MCG/2 ML NEB RESP TX SCH ×2 (07:07→18:00)
[2020-12-29] MEDS: BUDESONIDE 0.5 MG/2 ML NEB RESP TX SCH ×2 (07:07→18:00)
[2020-12-29] MEDS: SODIUM CHLORIDE 0.45% 1,000 ML IV SCH ×2 (07:54→21:41)
[2020-12-29] MEDS: AMIODARONE 200 MG TABLET PO SCH (08:50)
[2020-12-29] MEDS: METOPROLOL TARTRATE 25 MG TABLET PO SCH ×3 (08:57→20:56)
[2020-12-29] MEDS: MEROPENEM 500 MG in SODIUM CHLORIDE 0.9% 100 ML IV SCH ×3 (08:57→20:57)
[2020-12-29] MEDS: FLUCONAZOLE INJ 200 MG/100 ML PREMIX IV SCH (08:58)
[2020-12-29] MEDS: POLYETHYLENE GLYCOL POWDER 17 GM PACK PO SCH (08:59)
[2020-12-29] MEDS: PANTOPRAZOLE 40 MG VIAL IV SCH (09:01)
[2020-12-29] MEDS: methylPREDNISolone SOD SUC 40 MG/1 ML VIAL IV SCH ×2 (09:05→21:42)
[2020-12-29] MEDS: buPROPion 75 MG TABLET PO SCH ×2 (09:06→20:56)
[2020-12-29] MEDS: ASCORBIC ACID 500 MG TABLET NG SCH ×3 (09:54→21:56)
[2020-12-29] MEDS ORDERED: VANCOMYCIN INJ 2,000 MG in SODIUM CHLORIDE 0.9% 500 ML IV ONE (10:00)
[2020-12-29] MEDS ORDERED: VANCOMYCIN INJ 2,000 MG in SODIUM CHLORIDE 0.9% 500 ML IV PRN (14:40)
[2020-12-29] MEDS: MAGNESIUM HYDROXIDE SUSP 30 ML UDCUP PO PRN (14:58)
[2020-12-29] MEDS: BISACODYL 10 MG SUPP RECTAL PRN (14:58)
[2020-12-29] MEDS: POLYCARBOPHIL 625 MG TABLET PO SCH (20:56)
[2020-12-29] MEDS: ASPIRIN CHEW 81 MG TABLET PO SCH (20:57)
[2020-12-29] MEDS: ENOXAPARIN 100 MG/ML SYRINGE SUBCUT SCH (21:42)
[2020-12-30] MEDS: METOCLOPRAMIDE 10 MG/2 ML VIAL IV SCH ×4 (00:40→18:28)
[2020-12-30 02:21] LABS: ABG HCO3 25.9 MMOL/L (20-26); ABG PCO2 53.7 MM HG (35-48); ABG PH 7.301 (7.35-7.45); ABG PO2 64.2 MM HG (80-95); ABG TCO2 27.5 MMOL/L (23-27)
[2020-12-30] MEDS: MEROPENEM 500 MG in SODIUM CHLORIDE 0.9% 100 ML IV SCH ×4 (02:25→19:56)
[2020-12-30] MEDS: ALBUTEROL/IPRATROPIUM 3 ML NEB RESP TX SCH ×4 (04:07→19:12)
[2020-12-30] MEDS: DILTIAZEM 60 MG TABLET PO SCH ×4 (04:22→21:56)
[2020-12-30 04:26] LABS: Basophils % 0.1 % (0.0-0.8); Hematocrit 28.8 VOL% (42.0-52.0); Immature Granulocytes % 0.8 %; Immature Granulocytes Absolute 0.12 #; Lymphocytes # 0.1 10*3/uL (1.4-4.0); Lymphocytes % 0.8 % (21.2-54.2); Mean Corpuscular HGB Conc 31.3 GM/DL (32-36); Mean Platelet Volume 11.6 FL (9.6-12.0); Neutrophils % 94.3 % (38.7-73.9); Platelet Count 132 T/CUMM (130-400); Red Blood Count 2.97 MC/CUMM (3.8-5.5); Red Cell Distribution Width 17.2 % (9.3-17.3); White Blood Count 14.5 T/CUMM (4-12)
[2020-12-30 04:46] LABS: Alanine Aminotransferase 32 U/L (16-61); Albumin 1.7 G/DL (3.4-5.0); Alkaline Phosphatase 63 U/L (45-117); Aspartate Amino Transferase 32 U/L (0-37); Bilirubin,Total < 0.39 MG/DL (0.20-1.00); Blood Urea Nitrogen 67 MG/DL (7-18); Calcium 7.4 MG/DL (8.5-10.1); Carbon Dioxide 26 MMOL/L (21-32); Estimated Glom Filtration Rate 77 ML/MIN; Glucose 168 MG/DL (74-106); Osmolality,Calculated 297.7 MOS/KG (273-304); Potassium 5.5 MMOL/L (3.5-5.1); Sodium 138 MMOL/L (136-145); Total Protein 4.8 G/DL (6.4-8.2)
[2020-12-30 05:08] LABS: Band Neutrophils 2 % (0-10); Hypochromasia 1+; Microcytosis 1+; Platelet Estimate Adequate; Segmented Neutrophils 95 % (50-85); Total Cells Counted 100
[2020-12-30] MEDS: ARFORMOTEROL 15 MCG/2 ML NEB RESP TX SCH ×2 (06:54→19:12)
[2020-12-30] MEDS: BUDESONIDE 0.5 MG/2 ML NEB RESP TX SCH ×2 (06:54→19:12)
[2020-12-30] MEDS: AMIODARONE 200 MG TABLET PO SCH (08:23)
[2020-12-30] MEDS: POLYETHYLENE GLYCOL POWDER 17 GM PACK PO SCH (08:24)
[2020-12-30] MEDS: ENOXAPARIN 100 MG/ML SYRINGE SUBCUT SCH ×2 (08:24→21:31)
[2020-12-30] MEDS: METOPROLOL TARTRATE 25 MG TABLET PO SCH ×3 (08:24→21:55)
[2020-12-30] MEDS: PANTOPRAZOLE 40 MG VIAL IV SCH (08:24)
[2020-12-30] MEDS: methylPREDNISolone SOD SUC 40 MG/1 ML VIAL IV SCH ×2 (08:25→21:51)
[2020-12-30] MEDS: ASCORBIC ACID 500 MG TABLET NG SCH ×2 (08:25→22:03)
[2020-12-30] MEDS: buPROPion 75 MG TABLET PO SCH ×2 (08:25→21:55)
[2020-12-30] MEDS: FLUCONAZOLE INJ 200 MG/100 ML PREMIX IV SCH (08:25)
[2020-12-30] MEDS: FUROSEMIDE 40 MG/4 ML VIAL IV SCH ×2 (10:09→21:46)
[2020-12-30] MEDS: SODIUM CHLORIDE 0.45% 1,000 ML IV SCH ×2 (10:10→23:30)
[2020-12-30] MEDS ORDERED: VANCOMYCIN INJ 2,000 MG in SODIUM CHLORIDE 0.9% 500 ML IV ONE (10:30)
[2020-12-30] MEDS: SALIVA SUBSTITUTE SPRAY 60 ML CAN SWISH/SPIT SCH ×2 (14:59→21:27)
[2020-12-30] MEDS: SALIVA SUBSTITUTE SPRAY 60 ML CAN SWISH/SPIT PRN (17:17)
[2020-12-30] MEDS: VORICONAZOLE INJ 600 MG in SODIUM CHLORIDE 0.9% 250 ML IV SCH (17:17)
[2020-12-30] MEDS: ASPIRIN CHEW 81 MG TABLET PO SCH (21:55)
[2020-12-31] MEDS: ALBUTEROL/IPRATROPIUM 3 ML NEB RESP TX SCH ×4 (00:55→19:18)
[2020-12-31] MEDS: METOCLOPRAMIDE 10 MG/2 ML VIAL IV SCH ×3 (02:21→18:10)
[2020-12-31] MEDS: MEROPENEM 500 MG in SODIUM CHLORIDE 0.9% 100 ML IV SCH ×4 (03:35→19:56)
[2020-12-31] MEDS: DILTIAZEM 60 MG TABLET PO SCH ×4 (03:50→23:10)
[2020-12-31 05:10] LABS: ABG Base Excess -1.6 MMOL/L (-2.5-2.5); ABG HCO3 23.7 MMOL/L (20-26); ABG PCO2 42.7 MM HG (35-48); ABG PH 7.363 (7.35-7.45); ABG PO2 69.1 MM HG (80-95); ABG TCO2 25.1 MMOL/L (23-27)
[2020-12-31 05:51] LABS: Calcium 7.3 MG/DL (8.5-10.1); Osmolality,Calculated 301.5 MOS/KG (273-304); Potassium 5.1 MMOL/L (3.5-5.1)
[2020-12-31] MEDS: VORICONAZOLE INJ 600 MG in SODIUM CHLORIDE 0.9% 250 ML IV SCH (06:40)
[2020-12-31] MEDS: ARFORMOTEROL 15 MCG/2 ML NEB RESP TX SCH ×2 (07:17→19:18)
[2020-12-31] MEDS: BUDESONIDE 0.5 MG/2 ML NEB RESP TX SCH ×2 (07:17→19:18)
[2020-12-31] MEDS: SALIVA SUBSTITUTE SPRAY 60 ML CAN SWISH/SPIT PRN (07:45)
[2020-12-31] MEDS: SALIVA SUBSTITUTE SPRAY 60 ML CAN SWISH/SPIT SCH ×3 (08:26→22:17)
[2020-12-31] MEDS: AMIODARONE 200 MG TABLET PO SCH (08:27)
[2020-12-31] MEDS: FUROSEMIDE 40 MG/4 ML VIAL IV SCH ×3 (08:29→22:17)
[2020-12-31] MEDS: METOPROLOL TARTRATE 25 MG TABLET PO SCH ×3 (08:31→22:48)
[2020-12-31] MEDS: ASCORBIC ACID 500 MG TABLET NG SCH ×2 (08:32→22:07)
[2020-12-31] MEDS: buPROPion 75 MG TABLET PO SCH ×2 (08:33→22:00)
[2020-12-31] MEDS: PANTOPRAZOLE 40 MG VIAL IV SCH (08:35)
[2020-12-31] MEDS: methylPREDNISolone SOD SUC 40 MG/1 ML VIAL IV SCH ×2 (08:37→22:01)
[2020-12-31] MEDS: ENOXAPARIN 100 MG/ML SYRINGE SUBCUT SCH ×2 (08:38→22:00)
[2020-12-31] MEDS: POLYETHYLENE GLYCOL POWDER 17 GM PACK PO SCH (08:39)
[2020-12-31] MEDS: FLUCONAZOLE INJ 200 MG/100 ML PREMIX IV SCH (08:43)
[2020-12-31] MEDS: HYDROmorphone 2 MG/1 ML VIAL IV PRN (09:50)
[2020-12-31] MEDS: ALBUMIN 25% 25 GM/100 ML VIAL IV SCH ×2 (10:55→22:43)
[2020-12-31] MEDS: LEVOFLOXACIN INJ 750 MG/150 ML PREMIX IV SCH (12:28)
[2020-12-31] MEDS: SODIUM CHLORIDE 0.45% 1,000 ML IV SCH (12:28)
[2020-12-31] MEDS ORDERED: SKIN HEALING OINT (AQUAPHOR) 50 GM TUBE TOP PRN (13:56)
[2020-12-31] MEDS: VORICONAZOLE INJ 400 MG in SODIUM CHLORIDE 0.9% 100 ML IV SCH (16:58)
[2020-12-31] MEDS: ASPIRIN CHEW 81 MG TABLET PO SCH (22:00)
[2021-01-01] MEDS: ALBUTEROL/IPRATROPIUM 3 ML NEB RESP TX SCH ×4 (00:59→19:22)
[2021-01-01] MEDS: SODIUM CHLORIDE 0.45% 1,000 ML IV SCH ×2 (02:19→16:04)
[2021-01-01] MEDS: METOCLOPRAMIDE 10 MG/2 ML VIAL IV SCH ×3 (03:13→17:37)
[2021-01-01] MEDS: MEROPENEM 500 MG in SODIUM CHLORIDE 0.9% 100 ML IV SCH ×3 (03:16→17:36)
[2021-01-01 04:12] LABS: ABG Base Excess -2.8 MMOL/L (-2.5-2.5); ABG HCO3 23.6 MMOL/L (20-26); ABG Oxygen Saturation 92.3 % (95-100); ABG PCO2 49.5 MM HG (35-48); ABG PH 7.297 (7.35-7.45); ABG PO2 66.4 MM HG (80-95); ABG TCO2 25.2 MMOL/L (23-27)
[2021-01-01] MEDS: DILTIAZEM 60 MG TABLET PO SCH ×4 (05:50→21:04)
[2021-01-01] MEDS: VORICONAZOLE INJ 400 MG in SODIUM CHLORIDE 0.9% 100 ML IV SCH ×2 (06:24→17:36)
[2021-01-01 06:46] LABS: Alanine Aminotransferase 43 U/L (16-61); Alkaline Phosphatase 72 U/L (45-117); Aspartate Amino Transferase 44 U/L (0-37); Bilirubin,Total < 0.39 MG/DL (0.20-1.00); Blood Urea Nitrogen 90 MG/DL (7-18); Calcium 7.2 MG/DL (8.5-10.1); Carbon Dioxide 23 MMOL/L (21-32); Estimated Glom Filtration Rate 42 ML/MIN; Glucose 162 MG/DL (74-106); Potassium 5.4 MMOL/L (3.5-5.1); Sodium 136 MMOL/L (136-145)
[2021-01-01 06:48] LABS: Basophils % 0.1 % (0.0-0.8); Hemoglobin 7.6 GM/DL (14.0-18.0); Immature Granulocytes % 1.5 %; Immature Granulocytes Absolute 0.21 #; Lymphocytes # 0.1 10*3/uL (1.4-4.0); Lymphocytes % 0.6 % (21.2-54.2); Mean Corpuscular HGB Conc 31.7 GM/DL (32-36); Mean Corpuscular Volume 95.2 FL (87-102); Mean Platelet Volume 12.6 FL (9.6-12.0); Monocytes % 2.6 % (1.7-12.7); Neutrophils % 95.2 % (38.7-73.9); Platelet Count 107 T/CUMM (130-400); Red Blood Count 2.52 MC/CUMM (3.8-5.5); Red Cell Distribution Width 17.8 % (9.3-17.3); White Blood Count 14.3 T/CUMM (4-12)
[2021-01-01] MEDS: ARFORMOTEROL 15 MCG/2 ML NEB RESP TX SCH ×2 (07:06→19:22)
[2021-01-01] MEDS: BUDESONIDE 0.5 MG/2 ML NEB RESP TX SCH ×2 (07:08→19:22)
[2021-01-01] MEDS: AMIODARONE 200 MG TABLET PO SCH (08:23)
[2021-01-01] MEDS: buPROPion 75 MG TABLET PO SCH ×2 (08:23→21:05)
[2021-01-01] MEDS: ASCORBIC ACID 500 MG TABLET NG SCH ×2 (08:23→21:04)
[2021-01-01] MEDS: METOPROLOL TARTRATE 25 MG TABLET PO SCH ×3 (08:23→21:03)
[2021-01-01] MEDS: FUROSEMIDE 40 MG/4 ML VIAL IV SCH ×2 (08:23→21:03)
[2021-01-01] MEDS: methylPREDNISolone SOD SUC 40 MG/1 ML VIAL IV SCH ×2 (08:24→21:03)
[2021-01-01] MEDS: ENOXAPARIN 100 MG/ML SYRINGE SUBCUT SCH ×2 (08:24→21:02)
[2021-01-01] MEDS: PANTOPRAZOLE 40 MG VIAL IV SCH (08:24)
[2021-01-01] MEDS: POLYETHYLENE GLYCOL POWDER 17 GM PACK PO SCH (08:25)
[2021-01-01] MEDS: FLUCONAZOLE INJ 200 MG/100 ML PREMIX IV SCH (08:25)
[2021-01-01] MEDS: SALIVA SUBSTITUTE SPRAY 60 ML CAN SWISH/SPIT SCH ×3 (08:38→21:05)
[2021-01-01] MEDS: ALBUMIN 25% 25 GM/100 ML VIAL IV SCH ×2 (10:44→22:59)
[2021-01-01] MEDS: LEVOFLOXACIN INJ 750 MG/150 ML PREMIX IV SCH (10:45)
[2021-01-01 12:07] LABS: Band Neutrophils 6 % (0-10); Platelet Estimate Adequate; Segmented Neutrophils 94 % (50-85); Total Cells Counted 100
[2021-01-01] MEDS ORDERED: SODIUM POLYSTYRENE SULFATE 15 GM/60 ML BOTTLE PO ONE (18:40)
[2021-01-01] MEDS: ASPIRIN CHEW 81 MG TABLET PO SCH (21:04)
[2021-01-01 21:05] VITALS: BP 108/49
[2021-01-02] MEDS: ALBUTEROL/IPRATROPIUM 3 ML NEB RESP TX SCH ×2 (00:17→07:05)
[2021-01-02] MEDS: MEROPENEM 500 MG in SODIUM CHLORIDE 0.9% 100 ML IV SCH ×2 (00:38→09:23)
[2021-01-02] MEDS: METOCLOPRAMIDE 10 MG/2 ML VIAL IV SCH (02:29)
[2021-01-02] MEDS: DILTIAZEM 60 MG TABLET PO SCH (03:45)
[2021-01-02] MEDS ORDERED: SODIUM CHLORIDE 0.45% 250 ML IV ONE (03:47)
[2021-01-02] MEDS: PHENYLEPHRINE DRIP 40 MG/250 ML PREMIX IV PRN ×2 (04:00→07:30)
[2021-01-02] MEDS: SODIUM CHLORIDE 0.45% 1,000 ML IV SCH ×2 (04:18→05:23)
[2021-01-02 05:04] LABS: ABG Base Excess -7.2 MMOL/L (-2.5-2.5); ABG HCO3 21.3 MMOL/L (20-26); ABG Oxygen Saturation 89.5 % (95-100); ABG PCO2 63.2 MM HG (35-48); ABG PO2 64.9 MM HG (80-95); ABG TCO2 23.2 MMOL/L (23-27)
[2021-01-02 05:19] LABS: ABG PH 7.145 (7.35-7.45)
[2021-01-02 05:22] LABS: Basophils % 0.2 % (0.0-0.8); Hematocrit 22.8 VOL% (42.0-52.0); Hemoglobin 6.8 GM/DL (14.0-18.0); Immature Granulocytes % 1.5 %; Immature Granulocytes Absolute 0.32 #; Lymphocytes # 0.2 10*3/uL (1.4-4.0); Lymphocytes % 0.8 % (21.2-54.2); Mean Corpuscular HGB Conc 29.8 GM/DL (32-36); Mean Corpuscular Volume 104.1 FL (87-102); Mean Platelet Volume 12.9 FL (9.6-12.0); Monocytes % 2.2 % (1.7-12.7); NRBC # 0.04 10*3/uL; Neutrophils % 95.3 % (38.7-73.9); Platelet Count 134 T/CUMM (130-400); Red Blood Count 2.19 MC/CUMM (3.8-5.5); White Blood Count 21.7 T/CUMM (4-12)
[2021-01-02] MEDS ORDERED: SODIUM BICARBONATE 50 MEQ/50 ML VIAL IV ONE (05:22)
[2021-01-02 05:50] LABS: Calcium 6.8 MG/DL (8.5-10.1); Osmolality,Calculated 297.8 MOS/KG (273-304)
[2021-01-02 05:51] LABS: Band Neutrophils 9 % (0-10); Hypochromasia 2+; Lymphocytes 1 % (20-55); Microcytosis 1+; Platelet Estimate Adequate; Segmented Neutrophils 88 % (50-85); Total Cells Counted 100
[2021-01-02] MEDS: VORICONAZOLE INJ 400 MG in SODIUM CHLORIDE 0.9% 100 ML IV SCH (05:51)
[2021-01-02 06:06] LABS: Potassium 6.1 MMOL/L (3.5-5.1)
[2021-01-02] MEDS: ARFORMOTEROL 15 MCG/2 ML NEB RESP TX SCH (07:05)
[2021-01-02] MEDS: BUDESONIDE 0.5 MG/2 ML NEB RESP TX SCH (07:05)
[2021-01-02] MEDS ORDERED: SODIUM POLYSTYRENE SULFATE 15 GM/60 ML BOTTLE PO ONE (07:30)
[2021-01-02] MEDS: FLUCONAZOLE INJ 200 MG/100 ML PREMIX IV SCH (08:30)
[2021-01-02] MEDS: SALIVA SUBSTITUTE SPRAY 60 ML CAN SWISH/SPIT SCH (09:16)
[2021-01-02] MEDS: FUROSEMIDE 40 MG/4 ML VIAL IV SCH (09:16)
[2021-01-02] MEDS: methylPREDNISolone SOD SUC 40 MG/1 ML VIAL IV SCH (09:17)
[2021-01-02] MEDS: ASCORBIC ACID 500 MG TABLET NG SCH (09:17)
[2021-01-02] MEDS: ENOXAPARIN 100 MG/ML SYRINGE SUBCUT SCH (09:25)
[2021-01-02] MEDS: PANTOPRAZOLE 40 MG VIAL IV SCH (09:26)
[2021-01-02] MEDS: METOPROLOL TARTRATE 25 MG TABLET PO SCH (09:28)
[2021-01-02] MEDS: POLYETHYLENE GLYCOL POWDER 17 GM PACK PO SCH (09:28)
[2021-01-02] MEDS: AMIODARONE 200 MG TABLET PO SCH (09:28)
[2021-01-02] MEDS ORDERED: CALCIUM CHLORIDE 1,000 MG/10 ML SYRINGE IV ONE (09:30)
[2021-01-02] MEDS ORDERED: EPINEPHrine 1 MG/10 ML SYRINGE IV ONE (09:30)
[2021-01-03] MEDS ORDERED: LEVOFLOXACIN INJ 750 MG/150 ML PREMIX IV SCH (09:00)
== END 2021-01-02 09:31 | disposition expired | DRG 3 ==
LOC: N.OR 06:39 → N.SDSINP 06:46 → SUATTDRO 11:15 → N.SDSINP 11:15 → N.ICU 13:53 → EDSTATUS 16:30
PROVIDERS: ADMIT Surgery; ATTEND Internal Medicine